=== PATIENT | female | born 1965 | race Caucasian/White ===

== ENCOUNTER 2020-01-04 08:40 | Outpatient (CLI) | payer OTHER, SELFPAY | END 2020-01-04 08:41 | disposition home or self-care (01) | LOC: ANHAUDIO 08:44 | PROVIDERS: Visit Provider Otolaryngology | DX: H90.71 Mixed conductive and sensorineural hearing loss, unilateral, right ear, with unrestricted hearing on the contralateral side (principal); H90.42 Sensorineural hearing loss, unilateral, left ear, with unrestricted hearing on the contralateral side | CPT/HCPCS: 92557; 92567 ==

== ENCOUNTER 2021-02-28 14:16 | Outpatient (CLI) | payer OTHER, SELFPAY | END 2021-02-28 14:17 | disposition home or self-care (01) | LOC: ANHAUDIO 14:18 | PROVIDERS: Visit Provider Otolaryngology | DX: H90.42 Sensorineural hearing loss, unilateral, left ear, with unrestricted hearing on the contralateral side (principal); H90.71 Mixed conductive and sensorineural hearing loss, unilateral, right ear, with unrestricted hearing on the contralateral side | CPT/HCPCS: 92557 ==

== ENCOUNTER 2025-03-21 16:09 | Outpatient (CLI) | payer OTHER, SELFPAY ==
--- NOTE | ~2025-03-21 | CT_ITS ---
EXAMINATION: CT sinus wo con DATE: 03/21/2025 16:36 INDICATION: Chronic sinusitis TECHNIQUE: Computed tomography (CT) of the paranasal sinuses was performed without intravenous contra st. The dose-length product was 329.94 mGy-cm. Automated exposure control and iterative reconstructio n technique were employed. COMPARISON: None FINDINGS: There is mild mucosal thickening of the left maxillary sinus. Small mucous retention cyst r ight sphenoid sinus. Mastoids are pneumatized. There are surgical changes in the right mastoid air ce lls. No air-fluid levels. Ostiomeatal units are patent. No mucoperiosteal reaction. No significant na germaine septal deviation. IMPRESSION: 1. Minimal sinus disease. Reviewed, dictated and finalized at location B. IMPRESSION: 1. Minimal sinus disease.
--- OUTSIDE RECORDS SUMMARY | 2025-03-21 16:39 | XMS_ITS | Clinical Summary ---
Author Organization [facility] Address [address], [facility] [address] [place] [address] Phone Care Team Providers Care Environmental Advisor Name Role Phone Tony Wall MD Unavailable [phone] Ryan Barnes DO Unavailable [phone] Carlitos Graves MD Primary Care Provider [phone] Allen King MD Unavailable [phone] Allergies No known active allergies Medications SYMBICORT 160-4.5 MCG/ACT Aerosol 0 Active fluticasone (FLONASE) 50 MCG/ACT Suspension 1 [place] daily. 0 Active albuterol 108 (90 Base) MCG/ACT Aerosol Solution 0 Active Cetirizine HCl 10 MG Capsule Take by mouth. A ctive Multiple Vitamin (Multi-Vitamin) Tablet Take by mouth. Activ e Turmeric 1053 MG Tablet Take by mouth. Activ e metFORMIN (GLUCOPHAGE) 500 MG Tablet 1 Active Apple Cider Vinegar 500 MG Tablet Take 1,000 mg by mouth daily. Active Cinnamon Bark Powder Take 1 Each by mouth. Active docusate sodium 100 MG Capsule Take 100 mg by mouth. Active Coenzyme Q10 (CoQ-10) 100 MG Capsule Take 100 mg by mouth. Active atorvastatin (LIPITOR) 10 MG Tablet Take 1 Tablet by mouth daily. 3 Active topiramate (TOPAMAX) 25 MG Tablet Take 25 mg by mouth. 3 Active lisinopril (PRINIVIL, ZESTRIL) 20 MG Tablet 3 Active nystatin (MYCOSTATIN) 494446 UNIT/GM Cream 3 Active Wheat Dextrin (BENEFIBER PO) Take 2 Tablets by mouth in the morning and at bedtime. Active simethicone (MYLICON) 125 MG Chewable Tablet Take 80 mg by mouth every 6 hours as needed. Active OneTouch Verio Strip 4 Active TRUEplus 5-Bevel Pen Gill[place] 32G X 4 MM Misc 4 Active aspirin EC 81 MG Tablet Delayed Response Take 81 mg by mouth daily. 4 Active carvedilol (COREG) 12.5 MG Tablet Take 12.5 mg by mouth 2 times daily. 4 Active Dulaglutide (Trulicity) 0.75 MG/0.5ML Solution Auto-injector 0.75 mg by Subcutaneous route. 4 Active erythromycin (ROMYCIN) 5 MG/GM Ointment Apply to right eye nightly 4 Active ofloxacin (FLOXIN) 0.3 % Solution Place 5 Drops in affected ear(s) 2 times daily. 4 Active Cholecalciferol (Vitamin D3) 31353 UNIT Capsule Take 50,000 Units by mouth. 5 04/22/20 25 Active Cinnamon 500 MG Capsule Take 500 mg by mouth daily. Active estradiol (ESTRACE) 0.1 MG/GM Cream 2 g by Vaginal route. 4 Active mupirocin (BACTROBAN) 2 % Ointment 5 Active Trulicity 3 MG/0.5ML Solution Auto-injector 5 Active Active Problems Problem Noted Date Diagnosed Date Pure hypercholesterolemia 09/25/2022 Type 2 diabetes mellitus wit hout complication, without long-term current use of insulin 10/09/2021 Disease due to severe acute respiratory syndrome coronavirus 2 (SARS-CoV-2) 08/17/2021 Overview (01/03/2022): Last Assessment & Plan: Drink plenty of fluids Take Delsym for cough Tylenol as needed Taking flonase and zyrtec daily YASMIN (obstructive sleep apnea) 04/05/2021 Overview (01/03/2022): Last Assessment & Plan: The patient will continue with CPAP therapy at 5-15 cm water pressure to treat obstructive sleep apnea. I did provide the patient an order for a medium-size mask and head gear to see if this might improve her CPAP experiences. The patient not DME company is [employer]. The patient needs to be refitted for mask. That has been ordered. The patient is benefitting from CPAP therapy. 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 Continue current meds, including OSIRIS-I or ARB, e.g. 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) (Primary Dx) 03/11/2025 Travel from Last 3 Months Immunizations Immunization Administration Dates Next Due Influenza Vaccine 07/13/2020 Influenza Vaccine, MDCK,quadrivalent, pres free 07/13/2020 Influenza Vaccine, Quadrivalent, PF 09/12/2021,0 11/08/2019 Pneumococcal Vaccine Adult - 23 Valent 0 TDAP Vaccine 11/08/2019 Family History Medical History Relation Name Comments Diabetes Father Cancer Maternal Grandmother Stroke Maternal Grandmother Cancer Maternal Uncle Cancer Mother Diabetes Paternal Grandmother Diabetes Sister Relation Name Status Comments Father Maternal Grandmother Maternal Uncle Mother Paternal Grandmother Sister Social History Tobacco Use Types Packs/Day Years Used Date Smoking Tobacco: Former Cigarettes Q uit: 11/19/2019 Smokeless Tobacco: Never Tobacco Cessation:Counseling Given: Not Answered Alcohol Use Standard Drinks/Week Comments Yes 0 (1 standard drink = 0.6 oz pur e alcohol) socially PHQ-2 Answer Date Recorded Total Score - Questions 1-9 0 04/13 Comments No Sex and Gender Information Value Date Recorded Sex Assigned at Not on file Legal Sex Female 10:03 AM TERMINAL OPERATIONS MANAGER Gender Identity Not on file Sexual Orientation Not on file Last Filed Vital Signs Vital Sign Reading Time Taken Comments Blood Pressure 158/80 03/11/2025 8:03 AM CDT Pulse 96 03/11/2025 8:03 AM CDT Temperature 36.5 C (97.7 F) 03/11/2025 8:03 AM CDT Respiratory Rate 16 03/11/2025 8:03 AM CDT Oxygen Saturation 96% 03/11/2025 8:03 AM CDT Inhaled Oxygen Concentration - - Weight 109.7 kg (241 lb 12.8 oz) 03/11/2025 8:03 AM CDT Height 175.3 cm (5' 9) 03/11/2025 8:03 AM CDT Body Mass Index 35.71 03/11/2025 8:03 AM CDT Plan of Treatment Upcoming Encounters Date Type Department Care Team (Late st Contact Info) Description 09/09/2025 8:15 AM TERMINAL OPERATIONS MANAGER Office [facility] [address] [place] [address] Ryan Barnes, [address] [place] [address] Health Maintenance Due Date Last Done Comments Diabetes: Eye Exam 1963 Diabetes: Foot Exam 1963 Zoster Immunization (1 of 2) 1982 Pap Smear 1984 Cervical Cancer Screening (CCS) 1993 HPV/Cotest 1993 Cologuard 2013 Immunochemical Fecal Occult Blood 2013 Pneumococcal Immunization (50+ years) (2 of 2 - PCV) 11/08/2020 11/08/2019 SARS-COV-2 Immunization (3 - Pfizer risk series) 02/01/2022 01/04/2022, 12/14/2021 Respiratory Syncytial Virus (RSV) Immunization (Adult) (1 - Risk 60-74 years 1-dose series) 2023 Mammogram 04/23/2025 04/23/2024, 04/12, 04/17/2023, Additional history exists Influenza Immunization (Season Ended) 2025 09/12/2021, 07/13/2020, 07/13/2020, Additional history exists Diabetes: Hemoglobin A1c 08/06/2025 025, 11/26/2024, 07/27/2024, Additional history exists Diabetes: Nephropathy Screening 02/04/2026 02/04/2025, 08/27/2024, 02/27/2024, Additional history exists Td Immunization Every 10 Years (Adults With 1 Tdap) 11/08/2029 11/08/2019 Colonoscopy 03/21/2031 03/21/2021 Colorectal Cancer Screening 03/21/2031 DTaP/Tdap/Td Immunization Discontinued 11/08/2019 Pneumococcal Immunization Combined Discontinued 11/08/2019 Hepatitis C Virus (HCV) Screening Completed 09/06/2022 Hepatitis B Immunization Aged Out No longer eligible based on patient's age to complete this topic Human Papillomavirus (HPV) Immunization Aged Out No longer eligible based on patient's age to complete this topic Meningococcal Immunization (ACWY) Aged Out No longer eligible based on patient's age to complete this topic Rotavirus Immunization Aged Out No lo nger eligible based on patient's age to complete this topic Procedures Procedure Name Priority Date/Time Associated Diagnosis Comments CMP (COMPREHENSIVE METABOLIC PANEL) Routine 08/27/2024 7:55 AM TERMINAL OPERATIONS MANAGER Malignant carcinoid tumor of the bronchus and lung (HCC) HEMOGLOBIN A1C [place] 1453 Routine 02/27/2024 8:33 AM CDT HEPATITIS C ANTIBODY Routine 09/06/2022 7:53 AM TERMINAL OPERATIONS MANAGER from Last 3 Months or Most Recently Relevant to Health Maintenance Results * (ABNORMAL) CMP (COMPREHENSIVE METABOLIC PANEL) (08/27/2024 7:55 AM TERMINAL OPERATIONS MANAGER) Glucose 195(H) 70 - 105 mg/dL [facility] Blood Urea Nitrogen 23 7 - 25 mg/dL [facility] Creatinine 0.8 0.6 - 1.2 mg/dL [facility] Sodium 143 136 - 145 mEq/L [facility] Potassium 3.5 3.5 - 5.1 mEq/L [facility] Chloride 102 98 - 107 mEq/L [facility] Bicarbonate 30 21 - 31 mEq/L [facility] Total Bilirubin 0.6 0.3 - 1.0 mg/dL [facility] Alk. Phosphatase 76 34 - 104 U/L [facility] Aspartate Aminotransferase 9(L) 13 - 39 U/L [facility] Alanine Aminotransferase 12 7 - 52 U/L [facility] Total Protein 6.5 6.4 - 8.9 g/dL [facility] Albumin 4.1 3.5 - 5.7 g/dL [facility] Calcium 8.9 8.6 - 10.3 mg/dL [facility] Anion Gap 14.5 7.0 - 15.0 mEq/L [facility] Globulin 2.4 2.0 - 3.5 g/dL [facility] EGFR 84 >60 ml/min/1. 73m2 [facility] Comment: This eGFR is calculated using 2020 CKD-EPI Creatinine equation without race modifier based on the NKF-ASN task force recommendations Blood 08/27/2024 7:55 AM TERMINAL OPERATIONS MANAGER Narrative [facility] - 08/27/2024 9:08 AM TERMINAL OPERATIONS MANAGER Release to patient->Immediate IS THE PATIENT REQUIRED TO BE FASTING FOR 8 HOURS?->No us Aubrie Jackman BEHAVIORAL PEDIATRICIAN, MASTER AUTOMOTIVE GLASS TECHNICIAN CHEMISTRY ORDERABLES Final Result [facility] [place] [address], * (ABNORMAL) HEMOGLOBIN A1C [place] 1453 (02/27/2024 8:33 AM CDT) HEMOGLOBIN A1C 6.2(H) 4.8 - 5.6 % [facility] Comment: PREDIABETES: 5.7 - 6.4 DIABETES: >6.4 GLYCEMIC CONTROL FOR ADULTS WITH DIABETES: <7.0 02/27/2024 8:33 AM CDT Narrative [facility] - 02/28/2024 5:08 AM CDT TESTING PERFORMED AT: [] [employer] [facility], [address] [place] [address], [address], PHONE: [phone], TANK PROCESSOR: SURYA ALCAZAR, PHD Spencer Lua MD LAB SEND OUTS Fin al Result Performing Organization Address City/[facility] Co de Phone Number [facility] [address] [place] [address], * HEPATITIS C ANTIBODY (09/06/2022 7:53 AM TERMINAL OPERATIONS MANAGER) Pathologist [facility] HEPATITIS C VIRUS AB SIGNAL CUTOFF <0.1 0.0 - 0.9 S/CO RATIO [facility] HEPATITIS C VIRUS AB COMMENT [facility] Comment: NEGATIVE NOT INFECTED WITH HCV, UNLESS RECENT INFECTION IS SUSPECTED OR OTHER EVIDENCE EXISTS TO INDICATE HCV INFECTION. 09/06/2022 7:53 AM TERMINAL OPERATIONS MANAGER Narrative [facility] - 09/08/2022 8:35 AM TERMINAL OPERATIONS MANAGER TESTING PERFORMED AT: [] [employer] [place], [address] [place] [address], [place], [address], PHONE: [phone], TANK PROCESSOR: SURYA ALCAZAR, PHD us Not On File Provider CHEMISTRY ORDERABLES Final Result Performing Organization Address City/[facility]/ZIP Co de Phone Number [facility] from Last 3 Months or Most Recently Relevant to Health Maintenance Insurance [place]ID [place] Care Teams Environmental Advisor Relationship Specialty Start Date End Date Carlitos Graves MD [address] [facility] [place] [place] [address] PCP - General Family Medicine 03/26/21 Tony Wall MD Internal Medicine 11/15/19 Ryan Barnes DO Consulting Physician Oncology 11/15/19 Allen King MD [address] [place] [id number] Consulting Physician Internal Medicine 04/23/21
--- OUTSIDE RECORDS SUMMARY | 2025-03-21 16:39 | XMS_ITS | Encounter Summary ---
Author Organization [facility] Address [address] [place] [address] Phone Care Team Providers Care Gas Processing Plant Operator Name Role Phone Tony Wall MD Unavailable Provider, None Primary Care Provider Unavailabl e Ryan Barnes DO Unavailable [phone] Carlitos Graves MD Primary Care Provider [phone] Allen King MD Unavailable [phone] Encounter Details Date Type Department Care Team (Late st Contact Info) Description 09/26/2020 Telephone [facility] [place] [address] [place] [address] Ryan Barnes, DO [address] [place] [address] Social History Tobacco Use Types Packs/Day Years Used Date Smoking Tobacco: Former Cigarettes Q uit: 11/19/2019 Smokeless Tobacco: Never Alcohol Use Standard Drinks/Week Comments Yes 0 (1 standard drink = 0.6 oz pur e alcohol) socially PHQ-2 Answer Date Recorded PHQ-2 Score 0 11/23/2019 Comments Unknown Sex and Gender Information Value Date Recorded Sex Assigned at Not on file Legal Sex Female 10:03 AM COVER STRIPPER Gender Identity Not on file Sexual Orientation Not on file COVID-19 Exposure Response Date Recorded In the last month, have you been in contact with someone who was confirmed or suspected to have Coronavirus / COVID-19? No / Unsure 09/29/2020 8:41 AM COVER STRIPPER documented as of this encounter Miscellaneous Notes * Telephone Encounter - Ryan Barnes DO - 09/26/2020 10:23 AM CST Should be unrelated to abscess. R STRIPPER * Telephone Encounter - Lay Lopez - 09/26/2020 7:56 AM CST PT WAS IN THE ER Friday EVENING AND SHE HAS AN ABCESS ON HER LEFT HAND PINKY FINGER. PT IS WANTING TO KNOW IF THERE IS AN ISSUE WITH HER PARTICULAR CANCER AND IF SHE NEEDS TO DO ANYTHING? PLEASE ADVISE. R STRIPPER documented in this encounter Plan of Treatment Upcoming Encounters Date Type Department Care Team (Late st Contact Info) Description 09/09/2025 8:15 AM COVER STRIPPER Office Visit [facility] [address] [address] Ryan Barnes DO [address] [place] [address] documented as of this encounter Visit Diagnoses Not on filedocumented in this encounter Additional Health Concerns Assessment Noted Time PHQ-9 Depression Total Score: 0 06/30/20 20 8:31 AM CDT documented as of this encounter Care Teams Gas Processing Plant Operator Relationship Specialty Start Date End Date Provider, None [facility] PCP - General 11/15/19 03/25/21 Carlitos Graves MD [address] [place] [address] PCP - General Family Medicine 03/26/21 Tony Wall MD Internal Medicine 11/15/19 Ryan Barnes DO [facility] Consulting Physician Oncology 11/15/19 Allen King MD [address] [place] [address] Consulting Physician Internal Medicine 04/23/21 documented as of this encounter
--- OUTSIDE RECORDS SUMMARY | 2025-03-21 16:39 | XMS_ITS ---
Author Organization [facility] Address [address], [facility] [address] [place] [address] Phone Care Team Providers Care Machine Stonecutter Name Role Phone Tony Wall MD Unavailable Ryan Barnes DO Unavailable [phone] Carlitos Graves MD Primary Care Provider [phone] Allen King MD Unavailable [phone] Active Problems Problem Noted Date Diagnosed Date [...] experiences. The patient not DME company is [employer]. 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 Past Treatment and Therapy Plans No past plan information found.
--- OUTSIDE RECORDS SUMMARY | 2025-03-21 16:39 | XMS_ITS | Encounter Summary ---
Author Organization [facility] Address [address] [place] [address] Phone Care Team Providers Care Transformation Analyst Name Role Phone Tony Wall MD Unavailable Ryan Barnes DO Unavailable [phone] Carlitos Graves MD Primary Care Provider [phone] Allen King MD Unavailable [phone] Encounter Details Date Type Department Care Team (Late st Contact Info) Description 03/30/2021 Telephone [facility] [place] [address] [place] [address] Ryan Barnes, DO [address] [place] [address] Social History Tobacco Use Types Packs/Day Years Used Date Smoking Tobacco: Former Cigarettes Q uit: 11/19/2019 Smokeless Tobacco: Never Alcohol Use Standard Drinks/Week Comments Yes 0 (1 standard drink = 0.6 oz pur e alcohol) socially PHQ-2 Answer Date Recorded Total Score - Questions 1-9 0 03/13 Comments No Sex and Gender Information Value Date Recorded Sex Assigned at Not on file Legal Sex Female 10:03 AM BAT CARRIER Gender Identity Not on file Sexual Orientation Not on file COVID-19 Exposure Response Date Recorded In the last month, have you been in contact with someone who was confirmed or suspected to have Coronavirus / COVID-19? No / Unsure 03/23/2021 9:53 AM CDT documented as of this encounter Miscellaneous Notes * Telephone Encounter - Ryan Barnes DO - 03/30/2021 1:51 PM CDT Have patient call and get in to new manpower development specialist manager or safb doctor. * Telephone Encounter - Lay Lopez - 03/30/2021 10:55 AM CDT SPOKE TO DR TOBIN OFFICE AND THEY STATED HE IS NOT TAKING NEW PT. THEY DO HAVE AN WATERSHED ENGINEER AND A NEW MD FROM [facility] BUT THEY WOULD NOT CHANGE IT BY US ASKING TO SEE THAT PROVIDER THE PT HERSELF WOULDHAVE TO CALL THEM AND SAY SHE IS FINE TO SEE ONE OF THOSE PROVIDERS. WHAT WOULD YOU LIKE ME TO DO? documented in this encounter Plan of Treatment Upcoming Encounters Date Type Department Care Team (Late st Contact Info) Description 09/09/2025 8:15 AM BAT CARRIER Office Visit [facility] [address] [id number] Ryan Barnes DO [address] [place] [phone] documented as of this encounter Visit Diagnoses Not on filedocumented in this encounter Additional Health Concerns Assessment Noted Time PHQ-9 Depression Total Score: 0 03/23/20 21 10:12 AM CDT documented as of this encounter Care Teams Transformation Analyst Relationship Specialty Start Date End Date Carlitos Graves MD [address] [place] [address] PCP - General Family Medicine 03/26/21 Tony Wall MD Internal Medicine 11/15/19 Ryan Barnes DO Consulting Physician Oncology 11/15/19 Allen King MD [address] [place] [address] Consulting Physician Internal Medicine 04/23/21 documented as of this encounter
--- OUTSIDE RECORDS SUMMARY | 2025-03-21 16:39 | XMS_ITS | Encounter Summary ---
Author Organization [facility] Address [address] [place] [address] Phone Care Team Providers Care Carbonation Equipment Operator Name Role Phone Ryan Barnes DO Unavailable Tony Wall MD Unavailable Bar Kimble MD Unavailable Gerard Mercado MD Unavailable [phone] Angelic Wilcox MD Primary Care Provider Encounter Details Date Type Department Care Team (Late st Contact Info) Description 01/21/[address] [facility] Otolaryngology [address], [address] [place] [address] Lynette Cabrera CMA Social History Tobacco Use Types Packs/Day Years Used Date Smoking Tobacco: Former Cigarettes 2 43.1 1 977 - 11/2019 Passive Smoke Exposure: Past Smokeless Tobacco: Never Alcohol Use Standard Drinks/Week Comments Yes 0 (1 standard drink = 0.6 oz pur e alcohol) rarely AUDIT-C Answer Date Recorded Q1: How often do you have a drink containing alcohol? Never 01/24/2025 Q2: How many drinks containi ng alcohol do you have on a typical day when you are drinking? Patient does not drink Q3: How often do you have si x or more drinks on one occasion? Never 01/24/2025 PHQ-2 Answer Date Recorded PHQ-2 Total Score (If total score is 3 or more points, staff should administer the PHQ-9) 0 09/25/2023 Personal Safety Answer Date Recorded Have you ever been in or are you currently in a harmful physical or emotional relationship or is someone making you feel afraid or unsafe? Denies 01/24/2025 Comments No Sex and Gender Information Value Date Recorded Sex Assigned at Not on file Legal Sex Female 12:51 PM FINISHING AND SHIPPING SUPERVISOR Gender Identity Not on file Sexual Orientation Not on file documented as of this encounter Functional Status documented as of this encounter Plan of Treatment Not on file documented as of this encounter Visit Diagnoses Not on filedocumented in this encounter Care Teams Carbonation Equipment Operator Relationship Specialty Start Date End Date Angelic Wilcox MD [address] [facility] [address] [place] [address] PCP - General Family Medicine 08/16/24 Ryan Barnes DO Referring Physician Medical Oncology 03/19/20 Tony Wall MD [address] [facility] [address] [place] [address] Retail Training Manager Internal Medicine 03/19/20 Bar Kimble MD [address] [address] Consulting Physician Pulmonary Disease 01/28/22 Gerard Mercado MD [address] [place] [address] Consulting Physician Urology 08/02/22 documented as of this encounter
--- OUTSIDE RECORDS SUMMARY | 2025-03-21 16:40 | XMS_ITS | Clinical Summary ---
Author Organization [facility] Address [address] [place] [address] Care Team Providers Care Health Advocate Name Role Phone Maine Irwin Primary Care Provider [phone] Source Comments [facility],non-owned Affiliates and Associated Physician Practices is amultiple site organization consisting of ambulatory clinics and hospital sitesin [place], [place], [place] and [place]. This disclosure is being madepursuant to the Care Everywhere program and may not contain all information available regarding this patient. Last updated 18.[facility] Allergies No known active allergies Medications * Be aware that medications may not be up to date on this document. Alwaysverify current medications with the patient. Budesonide-For moterol Fumarate (SYMBICORT IN) Inhale 2 puffs by mouth 2 times daily Active Turmeric 500 MG Take by mouth 2 times daily Active carvedilol (COREG) 6.25 MG tablet Take 1 (one) tablet by mouth 2 times daily with morning and evening meal Active metFORMIN (GLUCOPHAGE) 500 MG tablet Take 1 (one) tablet by mouth 2 times daily with morning and evening meal Active atorvastatin (LIPITOR) 10 MG tablet Take 1 (one) tablet by mouth at bedtime Active cetirizine (ZYRTEC) 10 MG tablet Take 1 (one) tablet by mouth once daily Active Albuterol Sulfate, sensor, 108 (90 Base) MCG/ACT AEPB Active Multiple Vitamins-Shrimp Packer als (MULTIVITAMIN ADULTS 50+ PO) Take by mouth once daily Active fluticasone propionate (Flonase) 50 MCG/ACT nasal spray [place] 2 (two) sprays into each nostril once daily Active liraglutide (VICTOZA) 18 MG/3ML pen Inject 1.2 mg subcutaneously once daily Active Apple Cider Vinegar 500 MG Take 1,000 mg by mouth at bedtime Active Cinnamon Bark POWD Take 1 Each by mouth Active ciprofloxacin- dexAMETHasone (Ciprodex) 0.3-0.1 % otic suspension 2 Active Docusate Sodium (DSS) 100 MG Take 100 mg by mouth Active TechLite [place] 29G X 12MM needle USE TO INJECT 1 4 TIMES DAILY DIRECTED 1 Active TRUEplus [place] 32G X 4 MM MISC USE TO TAKE VICTOZA ONCE A DAY 2 Active lisinopril (Prinivil; Zestril) 20 MG tablet 2 Active Symbicort 160-4.5 MCG/ACT inhaler 2 Active liraglutide (Victoza) 18 MG/3ML pen Inject 1.8 mg subcutaneously 1 Active Active Problems Problem Noted Date Diagnosed Date Pure hypercholesterolemia 09/25/2022 Hydronephrosis 07/15/2022 Overview (11/14/2022): 07/18/22: NC: Nephrolithiasis. CT (outside, ~07/12/22) - RIGHT lower pole & RIGHT UVJ stone (obstructing w/ hydronephrosis). Creatinine wnl. Duplicated system. 08/07/22: RP: S/p R URS/LL, stent (08/02/22). Needs stent pull. Needs 4wk US (can be done locally). Right ureteral stone 07/12/2022 Bronchogenic lung cancer, right 03/21/2022 Overview (11/14/2022): Last Assessment & Plan: XI ROBOTIC LOBECTOMY (Right) - pain well controlled - D/C chest tube today - no air leak - wean D/C O2 - D/C franki/grier - PT to see - MTF Last Assessment & Plan: XI ROBOTIC LOBECTOMY (Right) - pain well controlled - D/C chest tube today - no air leak - wean D/C O2 - D/C franki/grier - PT to see - MTF Disease due to severe acute respiratory syndrome coronavirus 2 (SARS-CoV-2) 08/17/2021 Overview (11/14/2022): Last Assessment & Plan: Drink plenty of fluids Take Delsym for cough Tylenol as needed Taking flonase and zyrtec daily Last Assessment & Plan: Drink plenty of fluids Take Delsym for cough Tylenol as needed Taking flonase and zyrtec daily Last Assessment & Plan: Drink plenty of fluids Take Delsym for cough Tylenol as needed Taking flonase and zyrtec daily Last Assessment & Plan: Drink plenty of fluids Take Delsym for cough Tylenol as needed Taking flonase and zyrtec daily Last Assessment & Plan: Drink plenty of fluids Take Delsym for cough Tylenol as needed Taking flonase and zyrtec daily Last Assessment & Plan: Drink plenty of fluids Take Delsym for cough Tylenol as needed Taking flonase and zyrtec daily YASMIN (obstructive sleep apnea) 04/05/2021 Overview (11/14/2022): Last Assessment & Plan: Patient will continue with auto titrating CPAP set at auto titrating range of 5- 13 cm water pressure. Patient denied need for supplies. The Political Student adapt. Last Assessment & Plan: The patient will continue with CPAP therapy at 5-15 cm water pressure to treat obstructive sleep apnea. I did provide the patient an order for a medium-size mask and head gear to see if this might improve her CPAP experiences. The patient not [employer] Student is aero care. The patient needs to be refitted for mask. That has been ordered. The patient is benefitting from CPAP therapy. Last Assessment & Plan: Patient will continue with auto titrating CPAP set at auto titrating range of 5- 13 cm water pressure. Patient denied need for supplies. The Political Student adapt. Last Assessment & Plan: The patient will continue with CPAP therapy at 5-15 cm water pressure to treat obstructive sleep apnea. I did provide the patient an order for a medium-size mask and head gear to see if this might improve her CPAP experiences. The patient not [employer] Student is aero care. The patient needs to be refitted for mask. That has been ordered. The patient is benefitting from CPAP therapy. Last Assessment & Plan: Patient will continue with auto titrating CPAP set at auto titrating range of 5- 13 cm water pressure. Patient denied need for supplies. The Political Student adapt. Last Assessment & Plan: The patient will continue with CPAP therapy at 5-15 cm water pressure to treat obstructive sleep apnea. I did provide the patient an order for a medium-size mask and head gear to see if this might improve her CPAP experiences. The patient not The [employer] Student is aero care. The patient needs to be refitted for mask. That has been ordered. The patient is benefitting from CPAP therapy. 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 PSVT (paroxysmal supraventricular tachycardia) 0 02/21/2021 Overview (11/14/2022): Last Assessment & Plan: - restart home BB Mixed hyperlipidemia 02/21/2021 Malignant neoplasm of lower respiratory tract Overview (11/14/2022): s/p RMLobectomy 03/21/2022 s/p RMLobectomy 03/21/2022 Diabetes mellitus type 2 without retinopathy 02/2021 Overview (11/14/2022): Last Assessment & Plan: - SSI - on oral medications at home Last Assessment & Plan: - SSI - on oral medications at home Hyperglycemia 10/17/2020 Annual physical exam 05/16/2020 Overview (11/14/2022): Last Assessment & Plan: Follow-up 1 year for annual physical. Continue eating healthy. Limit processed foods like white starches, fast food, sweets and soda. Increase your vegetable intake and limit red meat. Continue exercising and wearing your seatbelt at all times. No texting and driving. Continue to manage your stress in a healthy manner. Diastolic dysfunction 05/16/2020 Overview (11/14/2022): Last Assessment & Plan: Diastolic function: stage I - impaired relaxation LVEF: 60-70%. - chronic and compensated - Cont BB, hold OSIRIS for now - not on diuretic Class 2 obesity with body ma ss index (BMI) of 37.0 to 37.9 in adult 04/06/2020 Edema 04/06/2020 Dyspnea 04/06/2020 Palpitations 04/06/2020 Essential hypertension 03/07/2020 Overview (11/14/2022): Last Assessment & Plan: Goal blood pressure is less than 140/85 Low salt diet was discussed andd recommended The importance of daily aerobic exercise was also emphasized. Continue current meds, including OSIRIS-I or ARB, e.g. Lisinopril Check microalbumin Last Assessment & Plan: Goal blood pressure is less than 140/85 Low salt diet was discussed andd recommended The importance of daily aerobic exercise was also emphasized. Continue current meds, including OSIRIS-I or ARB, e.g. Lisinopril Check microalbumin Smoking 03/07/2020 Overview (01/12/2025): 43 pack years, on going 43 pack years, on going IMO 01/12/2025 Tinnitus of both ears 03/07/2020 Mediastinal lymphadenopathy 03/07/2020 Abnormal finding on lung imaging 11/11/2019 Centrilobular emphysema 11/11/2019 Cigarette nicotine dependenc e with nicotine-induced disorder 11/11/2019 Multiple pulmonary nodules 11/11/2019 Mediastinal lymphadenopathy Lung nodule Resolved Problems Problem Noted Date Diagnosed Date Resolved Date UTI (urinary tract infection) 07/15/2022 11/28/2022 Social History Tobacco Use Types Packs/Day Years Used Date Smoking Tobacco: Former Cigarettes Smokeless Tobacco: Never Tobacco Cessation:Counseling Given: Not Answered Alcohol Use Standard Drinks/Week Comments Not Currently 0 (1 standard drink = 0.6 oz pur e alcohol) Comments No Sex and Gender Information Value Date Recorded Sex Assigned at Not on file Legal Sex Female 10:27 AM [employer]CERT PROMOTER Gender Identity Not on file Sexual Orientation Not on file Last Filed Vital Signs Vital Sign Reading Time Taken Comments Blood Pressure 140/76 11/14/2022 1:14 PM CONCERT PROMOTER Pulse 74 06/08/2021 2:50 PM CDT Temperature 36.6 C (97.9 F) 12/03/2019 4:30 PM CONCERT PROMOTER Respiratory Rate 18 12/03/2019 5:00 PM CONCERT PROMOTER Oxygen Saturation 93% 12/03/2019 5:00 PM CONCERT PROMOTER Inhaled Oxygen Concentration - - Weight 99.1 kg (218 lb 6.4 oz) 11/14/2022 1:14 P M [employer]CERT PROMOTER Height 175.3 cm (5' 9) 11/14/2022 1:14 PM CONCERT PROMOTER Body Mass Index 32.25 11/14/2022 1:14 PM CONCERT PROMOTER Plan of Treatment Health Maintenance Due Date Last Done Comments COLOGUARD (AGES 45-75) - COLON CA SCREENING 1965 CT COLONOGRAPHY - COLON CA SCREENING 1965 FIT - COLON CA SCREENING 1963 FLEX SIG - COLON CA SCREENING 1963 HIV SCREENING 1978 HEPATITIS C SCREENING 04/21/1981 DTAP/TDAP/TD VACCINES (1 - Tdap) 1982 PNEUMOCOCCAL VACCINE 50+ (1 of 2 - PCV) 1982 ZOSTER VACCINE (1 of 2) 2013 DIABETES RETINOPATHY SCREENING 11/14/2022 DIABETES-FOOT EXAM WITH MONOFILAMENT 11/14/2022 Respiratory Syncytial Virus (RSV) Vaccine Pt: or over 60 yrs (1 - Risk 60-74 years 1-dose series) 2023 COVID-19 VACCINE ( season) 2024 01/04/2022, 12/14/2021 DIABETES-HGB A1C 08/29/2024 02/27/2024, , 05/08/2021, Additional history exists DEPRESSION SCREENING 10/13/2024 DIABETES - URINE PROTEIN SCREENING 10/13/2024 DIABETES-SERUM CREATININE 02/26/20252023, 09/06/2022, 08/20/2022, Additional history exists INFLUENZA VACCINE (Season Ended) 2025 09/12/2021, 07/13/2020, 11/08/2019 MAMMOGRAM 04/23/2026 04/23/2024, 04/12, 04/23/2024, Additional history exists PAP SMEAR 05/29/2026 05/29/2023 COLON MONITORING 03/21/2031 03/21/2021 COLONOSCOPY - COLON CA SCREENING 03/21/2031 03/21/2021 Colorectal Cancer Screening 03/21/2031 HEPATITIS B VACCINE Aged Out No longe r eligible based on patient's age to complete this topic HIB VACCINE Aged Out No longer eligi ble based on patient's age to complete this topic HPV VACCINE Aged Out No longer eligi ble based on patient's age to complete this topic MENINGOCOCCAL (Group B) VACCINE SHARED DECISION-MAKING Aged Out No longer eligible based on patient's age to complete this topic MENINGOCOCCAL GROUPS A/C/Y/W VACCINE Aged Out No longer eligible based on patient's age to complete this topic Insurance [facility] Advance Directives Documents on File Type Date Recorded Patient Increment Manager Expl anation Adv Directive/Living Will/POA 12/06/2019 3:17 PM Care Teams Health Advocate Relationship Specialty Start Date End Date Maine Irwin [place] [address] [facility] [address] [place] [address] PCP - General 05/04/21
--- OUTSIDE RECORDS SUMMARY | 2025-03-21 16:40 | XMS_ITS ---
Author Organization [facility] Address [address] [address] Care Team Providers Care Dental Nurse Name Role Phone Maine Irwin Primary Care Provider Active Problems Problem Noted Date Diagnosed Date [...] leak - wean D/C O2 - D/C franki/marvel - PT to see - MTF Disease [...] water pressure. Patient denied need for supplies. [employer]v adapt. Last Assessment & Plan: The patient will continue with CPAP therapy at 5-15 cm water pressure to treat obstructive sleep apnea. I did provide the patient an order for a medium-size mask and head gear to see if this might improve her CPAP experiences. The patient not DME [employer] is aero care. The patient needs to be refitted for mask. That has been ordered. The patient is benefitting from CPAP therapy. Last Assessment & Plan: Patient will continue with auto titrating CPAP set at auto titrating range of 5- 13 cm water pressure. Patient denied need for supplies. Evolv adapt. Last Assessment & Plan: The patient will continue with CPAP therapy at 5-15 cm water pressure to treat obstructive sleep apnea. I did provide the patient an order for a medium-size mask and head gear to see if this might improve her CPAP experiences. The patient not DME [employer] is aero care. The patient needs to be refitted for mask. That has been ordered. The patient is benefitting from CPAP therapy. Last Assessment & Plan: Patient will continue with auto titrating CPAP set at auto titrating range of 5- 13 cm water pressure. Patient denied need for supplies. Evolv adapt. Last Assessment & Plan: The patient will continue with CPAP therapy at 5-15 cm water pressure to treat obstructive sleep apnea. I did provide the patient an order for a medium-size mask and head gear to see if this might improve her CPAP experiences. The patient not DME [employer] is aero care. The patient needs to [...] pulmonary nodules 11/11/2019 Mediastinal lymphadenopathy Lung nodule Current Treatment and Therapy Plans No current plan information found. Past Treatment and Therapy Plans No past plan information found. Lifetime Dose Tracking * Chemical Lifetime Dose Automatic Entry Manual Entr y Dose Length Product 2,332.8 mGy-cm 2,332.8 mGy-cm 0 mG y-cm Resolved Problems Problem Noted Date Diagnosed Date Resolved Date UTI (urinary tract infection) 07/15/2022 11/28/2022
--- OUTSIDE RECORDS SUMMARY | 2025-03-21 16:40 | XMS_ITS | Referral Summary ---
Author Organization [facility] Address [address] [place] [address] Care Team Providers Care Formula Maker Name Role Phone Ryan Barnes DO Unavailable Tony Wall MD Unavailable Bar Kimble MD Unavailable Gerard Mercado MD Unavailable [phone] Angelic Wilcox MD Primary Care Provider Encounters Date Type Department Care Team Description 03/11/2025 Plan of Care Documentation [facility] OP Physical Therapy [address] [place] [address] 03/11/2025 11:30 AM CDT Therapy [facility] OP Physical Therapy [address] [place] [address] Nica Arce, PT Urgency incontinence (Primary Dx) 03/04/2025 1:30 PM CDT Therapy [facility] OP Physical Therapy [address] [place] [address] Nica Arce, PT Urgency incontinence (Primary Dx) 03/01/2025 Telephone [facility] ([facility] - [facility] ENT [address] [facility] 11[address] [place] [address] [place] [address] Opal Barlow Return call 03/01/2025 Telephone [facility] Otolaryngology [address] [place] [address] Hawa David, 02/25/2025 11:30 AM CDT Therapy [facility] OP Physical Therapy [address] [place] [address] Nica Arce, PT Urgency incontinence (Primary Dx) 02/18/2025 10:30 AM CDT Therapy [facility] OP Physical Therapy [address] [place] [address] Nica Arce, PT Urgency incontinence (Primary Dx) 02/17/2025 2:20 PM CDT Office Visit [facility] Urology [address] [facility] [address] [place] [phone] Ira Viera MD Urgency incontinence; Urgency of urination; Nocturia; Duplicated right renal collecting system; Hydronephrosis, unspecified hydronephrosis type; Overactive bladder; Kidney stone 02/11/2025 11:30 AM CDT Therapy [facility] OP Physical Therapy [address] [place] [address] Nica Arce, PT Urgency incontinence (Primary Dx) 02/04/2025 11:30 AM CDT Therapy [facility] OP Physical Therapy [address] [place] [address] Nica Arce, PT Urgency incontinence (Primary Dx) 01/28/2025 10:30 AM CDT Therapy [facility] OP Physical Therapy [address] [place] [address] Nica Arce, PT Urgency incontinence (Primary Dx) 01/24/2025 7:30 AM CDT Anesthesia Event [facility] Operating Room [address] [facility] [place] [address] Nima Marcos MD Deibel, Lori, NP 01/24/2025 5:37 AM CDT - 01/24/2025 8:13 AM CDT Hospital Encounter [facility] Operating Room [address] [facility] [place] [phone] Que Carreon MD Discharge Disposition: Discharge to home or self care 01/21/2025 Telephone [facility] Otolaryngology [address] [facility], [address] [place] [phone] Lynette Cabrera, GIAN 01/21/2025 2:30 PM CDT Therapy [facility] OP Physical Therapy [address] [place] [address] Nica Arce, PT Urgency incontinence (Primary Dx) 01/18/2025 Orders Only [facility] Otolaryngology [address] [facility], [address] [place] [address] Lynette Cabrera, GIAN 01/14/2025 Telephone [facility] Otolaryngology [address] [facility], [address] [place] [address] Rula Tao RN 01/14/2025 Telephone [facility] Otolaryngology [address] [facility], [address] [place] [phone] Lynette Cabrera, GIAN 01/14/2025 11:15 AM CDT Therapy [facility] OP Physical Therapy [address] [place] [address] Nica Arce, PT Urgency incontinence (Primary Dx) 01/07/2025 10:15 AM CDT Therapy [facility] OP Physical Therapy [address] [place] [address] Nica Arce, PT Urgency incontinence (Primary Dx) 01/04/2025 9:00 AM CDT Procedure visit [facility] Otolaryngology [address] [facility], [address] [place] [address] Mixed conductive and sensorineural hearing loss of right ear with restricted hearing of left ear (Primary Dx); Tinnitus of right ear; Pressure sensation in both ears 01/04/2025 9:20 AM CDT Office Visit [facility] Otolaryngology [address] [facility], [address] [place] [address] Que Carreon MD Conductive hearing loss of right ear with unrestricted hearing of left ear (Primary Dx); Right chronic otitis media 12/28/2024 Telephone [facility] Surgery [address] [place] [address] Betty Chavez 12/22/2024 Plan of Care Documentation [facility] OP Physical Therapy [address] [place] [address] 12/22/2024 9:30 AM CDT Therapy [facility] OP Physical Therapy [address] [place] [address] Nica Arce, PT Urgency incontinence 12/21/2024 Orders Only [facility] Urology [address] [facility] [address] [place] [address] Ira Viera MD Urgency incontinence (Primary Dx) from Last 3 Months Allergies No known active allergies Medications Symbicort 160-4.5 mcg/actuation inhalerIndicatio ns:Bronchospasm Prevention with COPD Inhale 2 puffs 2 (two) times a day 0 Active albuterol HFA (PROVENTIL HFA,VENTOLIN HFA,PROAIR HFA) 90 mcg/actuation inhalerIndicatio ns:Chronic Obstructive Pulmonary Disease Inhale 2 puffs as needed for wheezing or shortness of breath 0 Active fluticasone propionate (FLONASE) 50 mcg/actuation nasal sprayIndications :Allergic Rhinitis Administer 1 spray into each nostril every morning 0 Active cetirizine 10 mg capsuleIndicatio ns:Seasonal Allergic Rhinitis Take 10 mg by mouth nightly Active TURMERIC ORALIndications: supplement Take 1 tablet by mouth every morning Active blood-glucose meter miscIndications: Diabetes mellitus type 2 in obese Use daily or as directed for monitoring of diabetes. 1 each 1 Active apple cider vinegar 500 mg tabletIndication s:supplement Take 1,000 mg by mouth nightly Active carvediloL (COREG) 12.5 mg tablet Take 1 tablet (12.5 mg total) by mouth 2 (two) times a day with meals 180 tablet 3 3 Active Additional Information Patient taking differently:12.5 mg oral 2 times daily with meals (bkfst, dinner),Indications: hypertension, Informant: Self, Reported on 01/24/2025 coenzyme Q10 75 mg capsuleIndicatio ns:supplement Take 1 capsule (75 mg total) by mouth nightly Active nystatin creamIndications :feet, fungal infection Apply 1 Application topically 2 (two) times a day 3 Active atorvastatin (LIPITOR) 10 mg tablet TAKE 1 TABLET BY MOUTH DAILY 90 tablet 3 3 Active Additional Information Patient taking differently: 10 mg oral Every evening, Indications: hyperlipidemia, Informant: Self, Reported on 01/24/2025 TRUEplus Pen Needle 32 gauge x 5/32 needle USE TO TAKE VICTOZA ONCE A DAY 200 each 1 4 Active lisinopriL (PRINIVIL,ZESTRI L) 20 mg tabletIndication s:Essential hypertension TAKE 1 TABLET BY MOUTH DAILY 90 tablet 4 Active Additional Information Patient taking differently:20 mg oralEvery morning, Indications: hypertension, Informant: Self, Reported on 01/05/2025 estradioL (ESTRACE) 0.01 % (0.1 mg/gram) vaginal cream Insert 2 g into the vagina 3 (three) times a week Apply nightly to vagina for 1 week, then Friday/Friday / Friday 42.5 g 5 4 Active Additional Information Patient taking differently:2 g vaginalEvery morning, (No instructions reported), Informant: Self, Reported on 01/24/2025 OneTouch Delica Plus Lancet 33 gauge misc USE TWICE DAILY 100 each 3 4 Active OneTouch Verio test strips strip USE TO TEST TWICE DAILY 100 each 2 4 Active cinnamon bark 500 mg capsuleIndicatio ns:supplement Take 1 capsule (500 mg total) by mouth every morning Active aspirin 81 mg enteric coated tabletIndication s:prevention of thrombosis Take 1 tablet (81 mg total) by mouth every morning 4 Active dulaglutide (Trulicity) 3 mg/0.5 mL pen injectorIndicati ons:type 2 diabetes mellitus Inject 0.5 mL (3 mg total) under the skin every 7 days 6 mL 3 5 026 Active Additional Information Patient taking differently:3 mg subcutaneous Every 7 days,, Indications: type 2 diabetes mellitus, Informant: Self, Reported on 01/05/2025 metFORMIN XR (GLUCOPHAGE XR) 500 mg 24 hr tabletIndication s:Type 2 diabetes mellitus with hyperglycemia, without long-term current use of insulin (HCC) TAKE 1 TABLET BY MOUTH DAILY 90 tablet 3 5 Active Additional Information Patient taking differently:500 mg oralDaily with breakfast, Indications: type 2 diabetes mellitus, Informant: Self, Reported on 01/24/2025 guaiFENesin ER (MUCINEX) 600 mg 12 hr tabletIndication s:Cough Take 2 tablets (1,200 mg total) by mouth 2 (two) times a day Active predniSONE (DELTASONE) 20 mg tablet Take 1 tablet (20 mg) by mouth daily Takes 2 tabs together for 40 mg total Active Active Problems Patient Care Coordination No te Formatting of this note is d ifferent from the original. This is a 54 year old female presenting to us with a carcinoid tumor. She has a medical history significant for COPD and hypertension. She presented to an urgent care in September for a cough, congestion, cold and sore throat. She underwent a chest x-ray and was told there a concerning lung nodule. She subsequently underwent a chest CT in October that demonstrated multiple bilateral subcentimeter pulmonary nodulesas well as mediastinal lymphadenopathy. She was referred to pulmonology and underwent a bronchoscopy and transbronchial biopsy showing granulomatous disease. However, she has a dominant nodule in the right middle lobe that is just over a centimeter in size and a transbronchial biopsy showed this to be a carcinoid tumor. She underwent PFTs that showed a FEV1 of 56% predicted and had a normal DLCO. She underwent a PET scan on 01/06/2020 that showed a 1.7 x 1.4 cm right middle lobe pulmonary nodule with a slightly increased metabolic SUV of 3.39 consistent with patient s known carcinoid tumor. Slightly metabolically active 7 mm nodule in the right middle lobe with SUV max of 1.43, which may represent additional site of disease versus infectious/inflammatory process. There are additional multiple right lung pulmonary nodules are too small to detect metabolic activity. There are metabolically active mediastinal and symmetric bilateral hilar lymph nodes with SUV max of 4.7, which is higher than the right middle lobe nodule. These most likely represent infectious/inflammatory process. There is a region of increased metabolic activity with calcification in the left suprasellar cistern which may represent meningioma. She is here for further surgical evaluation and discussion. Bhavna Lu NP 11/06/20241957 This is a 59 year old female presenting to the clinic today for an annual follow up for continued surveillance. She underwent a right middle lobectomy and lymph node dissection on 03/21/2022 for removal of a carcinoid tumor. She was last seen on 10/21/2023 at which time there was no evidence of recurrence or metastasis and the plan was to see her back this year. She underwent a CT of the chest without contrast on 11/04/2024 which reveals: MEDIASTINUM/PRUDENCE: No abnormal lymph nodes by size criteria. No thoracic aortic aneurysm. LUNGS/PLEURA: Moderate centrilobular pulmonary emphysema. Stable pulmonary nodules, including a 3 mm right upper lobe nodule (axial image 41), 4 mm part solid right upper lobe nodule (axial image 47), 3 mm right upper lobe nodule axial image 55) and 5 mm right lower lobe nodule (axial image 78). These are stable dating back to 07/18/2022. No new pulmonary nodules. Previous right middle lobectomy. No pleural effusion or pneumothorax. All imaging available on file for review. She is here for further surgical discussion and evaluation. Problem Noted Date Diagnosed Date Conductive hearing loss of r ight ear with unrestricted hearing of left ear 03/18/2024 Right chronic otitis media 03/18/2024 Tympanic membrane perforation, right 03/18/2024 Morbid (severe) obesity due to excess calories 0 03/20/2023 Pure hypercholesterolemia 09/25/2022 Hydronephrosis 07/15/2022 Overview (09/19/2022): 07/18/22: NC: Nephrolithiasis. CT (outside, ~07/12/22) - RIGHT lower pole & RIGHT UVJ stone (obstructing w/ hydronephrosis). Creatinine wnl. Duplicated system. 08/07/22: RP: S/p R URS/LL, stent (08/02/22). Needs stent pull. Needs 4wk US (can be done locally). Right ureteral stone 07/12/2022 Bronchogenic lung cancer, right 03/21/2022 03/20/2023 Overview (03/20/2023): Last Assessment & Plan: XI ROBOTIC LOBECTOMY [...] franki/grier - PT to see - MTF COVID 08/17/2021 Assessment & Plan (08/25/2021 1:54 PM COMMUNITY WORKER): Drink plenty of fluids Take Delsym for cough Tylenol as needed Taking flonase and zyrtec daily Type 2 diabetes mellitus wit h hyperglycemia, without long-term current use of insulin 06/05/2021 Overview (06/05/2021): on Metformin. Pt has questions regarding her cancer treatments in relation to her DM. Will refer to endocrinology. Assessment & Plan (11/26/2024 10:00 AM COMMUNITY WORKER): Chronic problem. A1c improved from 6.6% 07/27/24 to now 6.1%. Will increase trulicity from 1.5mg to 3mg weekly to help with weight loss. Current medications: Metformin XR 500mg daily Trulicity 3 mg weekly UTD on DM eye exam (04/13/24 no DMR/DME [facility]) UTD on labs. Discussed with Comfort Vasques: Strive for regular exercise (30min most days) and diet (get at least 4-5 servings of fruit and veggies daily, avoid processed foods, increase lean protein intake and decrease carb portions as well as fruit juices, regular soda & desserts). Watch carbs and simple sugars. Check the blood sugar: 2-3x/wk Check the feet daily for skin breakdown and infection. Assessment & Plan (07/27/2024 3:32 PM CDT): Chronic problem. A1c at goal but increased from 6.2% 02/28/24 to now 6.6%. would like to eventually come off of metformin. Will change from Victoza to trulicity. Reviewed scheduling & SE. Current medications: Metformin XR 500mg daily Trulicity 0.75mg weekly x 4 weeks then increase to 1.5mg weekly UTD on DM eye exam (04/13/24 no DMR/DME [facility]) Will update MA/Cr today. Does not mychart. Verified phone #/address to contact re: results. Discussed with Comfort Vasques: Strive for regular exercise (30min most days) and diet (get at least 4-5 servings of fruit and veggies daily, avoid processed foods, increase lean protein intake and decrease carb portions as well as fruit juices, regular soda & desserts). Watch carbs and simple sugars. Check the blood sugar: Check the feet daily for skin breakdown and infection. Assessment & Plan (01/27/2024 2:51 PM CDT): Chronic, well controlled Will switch form victoza to Mounjaro, to help with weight loss Continue metformin Assessment & Plan (07/11/2023 2:40 PM CDT): Hba1c was Lab Results Component Value Date HGBA1C 5.9 07/11/2023 today, indicating adequate DM control Goal Hba1c and blood glucose explained Diet and exercise were advised Prevention and treatment of hyypoglcyemia were discussed with the patient Blood glucose monitoring : finger sticks every other day, alternating different times of the day Adjustment to medications: Continue with Metformin and Victoza Assessment & Plan (12/24/2022 2:38 PM CDT): Hba1c was Lab Results Component Value Date HGBA1C 5.5 12/24/2022 today, indicating adequate DM control Goal Hba1c and blood glucose explained Diet and exercise were advised Prevention and treatment of hyypoglcyemia were discussed with the patient Blood glucose monitoring : 1 x day Adjustment to medications: Continue Metformin Continue Victoza. Assessment & Plan (06/20/2022 3:08 PM CDT): Lower Metformin to once a day continue Victoza Continue working on diet and exercise. Assessment & Plan (01/01/2022 4:21 PM CDT): Hba1c was Lab Results Component Value Date HGBA1C 5.3 01/01/2022 today, indicating adequate DM control Goal Hba1c and blood glucose explained Diet and exercise were advised Prevention and treatment of hyypoglcyemia were discussed with the patient Blood glucose monitoring : Once a day at different times of the Adjustment to medications: Continue with Victoza and metformin Assessment & Plan (08/02/2021 1:20 PM CDT): Hba1c was Lab Results Component Value Date HGBA1C 6.2 08/02/2021 today, indicating Adequate DM control Goal Hba1c and blood glucose explained Diet and exercise , discussed Prevention and treatment of hyypoglcyemia discussed. Blood glucose monitoring : 1-2 x day Adjustment to oral medications: Continue Metformin Increase Victoza 1.8 mg nightly Assessment & Plan (06/05/2021 4:08 PM CDT): Hba1c was Lab Results Component Value Date HGBA1C 7.4 (H) 05/08/2021 today, indicating suboptimal DM control Goals blood sugars of 120-160 and Hba1c under 7 % was explained. 1800 calorie, consistent carb diet recommended, no more than 30 grams of carbs per meal, avoiding concentrated sweet drinks and rapid absorption carbs. 25-45 min daily aerobic and resistance exercise recommended Advised the patient to do blood glucose monitoring every other day, alternating different times of the day Continue metformin Will start GLP-1 analog with Victoza, which will help with blood glucose control but also with some weight loss which is one the patient's main concern I explained to the patient also how hyperglycemia and diabetes can be a side effect of Sandostatin. The fact that she has history of diabetes in the family however plays and important role in her developing diabetes YASMIN (obstructive sleep apnea) 04/05/2021 Overview (09/19/2022): Last Assessment & Plan: Patient will continue with auto titrating CPAP set at auto titrating range of 5- 13 cm water pressure. Patient denied need for supplies. DME company [employer]. Last Assessment & Plan: The patient will continue with CPAP therapy at 5-15 cm water pressure to treat obstructive sleep apnea. I did provide the patient an order for a medium-size mask and head gear to see if this might improve her CPAP experiences. The patient not DME company is [employer]. The patient needs to be refitted for mask. That has been ordered. The patient is benefitting from CPAP therapy. Assessment & Plan (04/22/2024 2:24 PM CDT): The patient continues to benefit from the auto titrating CPAP unit with a range of 5-13 cm water pressure for ongoing symptoms of YASMIN. Her DME supplier is [employer]. She will follow up here in 1 year. Assessment & Plan (04/17/2023 2:52 PM CDT): The patient continues to benefit from the auto titrating CPAP unit with a range of 5-13 cm water pressure. Her DME supplier is [employer]. I will have an order sent to resize her current CPAP mask. She will follow-up with me in 1 year. Assessment & Plan (04/08/2022 1:57 PM CDT): Patient will continue with auto titrating CPAP set at auto titrating range of 5- 13 cm water pressure. Patient denied need for supplies. DME company [employer]. Assessment & Plan (04/05/2021 3:41 PM CDT): The patient will continue with CPAP therapy at 5-15 cm water pressure to treat obstructive sleep apnea. I did provide the patient an order for a medium-size mask and head gear to see if this might improve her CPAP experiences. The patient not DME company is [employer]. The patient needs to be refitted for mask. That has been ordered. The patient is benefitting from CPAP therapy. 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 Currently taking Atorvastatin 10mg. Last lipid panel: 02/27/24 LDL=89, TG=85. Assessment & Plan (07/27/2024 2:40 PM CDT): Chronic problem. Currently taking Atorvastatin 10mg. Last lipid panel: 02/27/24 LDL=89, TG=85. Assessment & Plan (01/27/2024 2:52 PM CDT): Chronic, well controlled Continue statin therapy with atorvastatin Assessment & Plan (07/11/2023 2:40 PM CDT): Chronic, well controlled Continue Atorvastatin Update lipid profile Assessment & Plan (12/24/2022 2:45 PM CDT): Chronic, well controlled Low fat Low cholesterol diet Exercise Continue statin therapy with Atorvastatin PSVT (paroxysmal supraventricular tachycardia) ( [facility]/HCC) 02/21/2021 Assessment & Plan (03/22/2022 8:41 AM CDT): - restart home BB Malignant carcinoid tumor of bronchus and lung 0 10/20/2020 Overview (09/19/2022): s/p RMLobectomy 03/21/2022 Hyperglycemia 10/17/2020 03/20/2023 Diabetes mellitus type 2 without retinopathy 02/202103/20/2023 Overview (03/20/2023): Last Assessment & Plan: - SSI - on oral medications at home Last Assessment & Plan: - SSI - on oral medications at home Annual physical exam 05/16/2020 Assessment & Plan (09/25/2023 3:58 PM COMMUNITY WORKER): Follow-up 1 year for annual physical. Continue eating healthy. Limit processed foods like white starches, fast food, sweets and soda. Increase your vegetable intake and limit red meat. Continue exercising and wearing your seatbelt at all times. No texting and driving. Continue to manage your stress in a healthy manner. Assessment & Plan (10/02/2022 4:02 PM COMMUNITY WORKER): Follow-up 1 year for annual physical. Continue eating healthy. Limit processed foods like white starches, fast food, sweets and soda. Increase your vegetable intake and limit red meat. Continue exercising and wearing your seatbelt at all times. No texting and driving. Continue to manage your stress in a healthy manner. Assessment & Plan (05/22/2021 2:05 PM CDT): Follow-up 1 year for annual physical. Continue eating healthy. Limit processed foods like white starches, fast food, sweets and soda. Increase your vegetable intake and limit red meat. Continue exercising and wearing your seatbelt at all times. No texting and driving. Continue to manage your stress in a healthy manner. Inappropriate sinus tachycardia 05/16/2020 Diastolic dysfunction 05/16/2020 Assessment & Plan (03/22/2022 8:48 AM CDT): Diastolic function: stage I - impaired relaxation LVEF: 60-70%. - chronic and compensated - Cont BB, hold OSIRIS for now - not on diuretic Class 2 severe obesity due t o excess calories with serious comorbidity and body mass index (BMI) of 37.0 to 37.9 in adult 04/06/2020 Assessment & Plan (11/26/2024 10:01 AM COMMUNITY WORKER): Discussed healthy diet and importance of regular physical activity (20- 30min/day, 150min/wk). 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 Will increase Trulicity from 1.5mg weekly to 3mg weekly to help with weight loss. Edema 04/06/2020 Palpitations 04/06/2020 Dyspnea 04/06/2020 Mediastinal lymphadenopathy 03/07/2020 Hypertension associated with diabetes 03/07/2020 Assessment & Plan (11/26/2024 9:38 AM COMMUNITY WORKER): Chronic problem. Controlled on current carvedilol 12.5mg bid, lisinopril 20mg Assessment & Plan (07/27/2024 2:40 PM CDT): Chronic problem. Controlled on current carvedilol 12.5mg bid, lisinopril 20mg Assessment & Plan (07/11/2023 2:43 PM CDT): Chronic, well controled Continue Lisinopril Assessment & Plan (12/24/2022 2:43 PM CDT): Chronic, well controlled Continue LIsinopril Update MA Assessment & Plan (08/02/2021 1:22 PM CDT): Goal blood pressure is less than 140/85 Low salt diet was discussed andd recommended The importance of daily aerobic exercise was also emphasized. Continue current meds, including OSIRIS-I or ARB, e.g. Lisinopril Check microalbumin Tinnitus of both ears 03/07/2020 Essential hypertension 03/07/2020 Overview (03/20/2023): Last Assessment & Plan: Goal blood pressure [...] Multiple pulmonary nodules 11/11/2019 Centrilobular emphysema 11/11/2019 Cigarette nicotine dependenc e with nicotine-induced disorder 11/11/2019 Resolved Problems Problem Noted Date Diagnosed Date Resolved Date UTI (urinary tract infection) 07/15/2022 04/02/2024 Bronchogenic lung cancer, right 03/21/2022 12/24/2022 Assessment & Plan (03/22/2022 8:41 AM CDT): XI ROBOTIC LOBECTOMY (Right) - pain well controlled - D/C chest tube today - no air leak - wean D/C O2 - D/C franki/grier - PT to see - MTF Disease due to severe acute respiratory syndrome coronavirus 2 (SARS-CoV-2) 08/17/202106/2024 Overview (09/19/2022): Last Assessment & Plan: Drink plenty of fluids Take Delsym for cough Tylenol as needed Taking flonase and zyrtec daily Last Assessment & Plan: Drink plenty of fluids Take Delsym for cough Tylenol as needed Taking flonase and zyrtec daily Disease due to severe acute respiratory syndrome coronavirus 2 (SARS-CoV-2) 08/17/2021 03/20/202306/2024 Overview (03/20/2023): Last Assessment & Plan: Drink plenty of [...] zyrtec daily YASMIN (obstructive sleep apnea) 04/05/2021 03/20/2023 03/20/2023 Overview (03/20/2023): Last Assessment & Plan: Patient will continue with auto titrating CPAP set at auto titrating range of 5- 13 cm water pressure. Patient denied need for supplies. [employer] adapt. Last Assessment & Plan: The patient will continue with CPAP therapy at 5-15 cm water pressure to treat obstructive sleep apnea. I did provide the patient an order for a medium-size mask and head gear to see if this might improve her CPAP experiences. The patient not [employer] is [employer]. The patient needs to be refitted for mask. That has been ordered. The patient is benefitting from CPAP therapy. Last Assessment & Plan: Patient will continue with auto titrating CPAP set at auto titrating range of 5- 13 cm water pressure. Patient denied need for supplies. [employer] adapt. Last Assessment & Plan: The patient will continue with CPAP therapy at 5-15 cm water pressure to treat obstructive sleep apnea. I did provide the patient an order for a medium-size mask and head gear to see if this might improve her CPAP experiences. The patient not [employer] is [employer]. The patient needs to be refitted for mask. That has been ordered. The patient is benefitting from CPAP therapy. Last Assessment & Plan: Patient will continue with auto titrating CPAP set at auto titrating range of 5- 13 cm water pressure. Patient denied need for supplies. [employer] adapt. Last Assessment & Plan: The patient will continue with CPAP therapy at 5-15 cm water pressure to treat obstructive sleep apnea. I did provide the patient an order for a medium-size mask and head gear to see if this might improve her CPAP experiences. The patient not DME company is [employer]. The patient needs to be refitted for mask. That has been ordered. The patient is benefitting from CPAP therapy. Malignant neoplasm of lower respiratory tract 10/20/19 21 03/20/2023 10/21/2023 Overview (03/20/2023): s/p RMLobectomy 03/21/2022 s/p RMLobectomy 03/21/2022 Diabetes mellitus type 2 without retinopathy 03/20/2023 Assessment & Plan (03/22/2022 8:42 AM CDT): - SSI - on oral medications at home Smoking 03/07/2020 03/20/2023 Overview (04/19/2021): 43 pack years, on going Smoking 03/07/2020 03/20/2023 03/20/2023 Overview (03/20/2023): 43 pack years, on going 43 pack years, on going Multiple pulmonary nodules 11/11/2019 0 04/02/2024 Immunizations Immunization Administration Dates Next Due Influenza, Quadrivalent, Kelly l Culture-based MDCK, Preservative Free, Antibiotic Free, Intramuscular 07/13/2020 Influenza, Quadrivalent, Spl it, Preservative Free, Intramuscular 09/12/2021,11/08/2019 Influenza, Unspecified 09/25/2023(Deferr ed: Patient Refused),01/09/2023(Deferred: Patient Refused),07/13/2020 Moderna SARS-CoV-2 Monovalen t Vaccination (12+ YRS) 01/04/2022,12/14/2021 Pfizer SARS-CoV-2 Monovalent Vaccination (12+ Yrs) LÓPEZ-READY TO USE 01/04/2022,12/14/2021 Pneumococcal Polysaccharide PPV23 11/08/2019 Tdap 11/08/2019 Social History Tobacco Use Types Packs/Day Years [...] on file 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 Gender Identity Not on file Sexual Orientation Not on file Last Filed Vital Signs Vital Sign Reading Time Taken Comments Blood Pressure 144/82 01/24/2025 7:00 AM CDT Pulse 83 01/24/2025 7:00 AM CDT Temperature 36 C (96.8 F) 01/24/2025 6:00 AM CDT Respiratory Rate 22 01/24/2025 7:00 AM CDT Oxygen Saturation 98% 01/24/2025 7:00 AM CDT Inhaled Oxygen Concentration - - Weight 109.1 kg (240 lb 9.6 oz) 01/24/2025 5:47 AM CDT Height 172.7 cm (5' 8) 01/24/2025 5:47 AM CDT Body Mass Index 36.58 01/24/2025 5:47 AM CDT Plan of Treatment Not on file Medical Devices Implanted Type Area Industrial Relations Analyst Device Identifier Shelf Expiration Date Model / Serial / Lot [employer] Universa 7fr 26cm Radiopaque Positioner Monofilament Tether Firm [id number] - [id number] Implanted:Qty: 1 on 08/02/2022 by Gerard Mercado MD at [facility] Right: Ureter [employer] 01/22/2025 [id number] / / [id number] [employer] Universa 6fr 24cm Radiopaque Graduate Firm Monofilament Tether [id number] - [id number] Implanted:Qty: 1 on 08/02/2022 by Gerard Mercado MD at [facility] Right: Ureter [employer] 05/24/2025 [id number] / / [id number] Explanted Type Area Industrial Relations Analyst Device Identifier Shelf Expiration Date Model / Serial / Lot Ureteral Stent Explanted:Qty: 2 on 08/02/2022 by Gerard Mercado MD at [facility] Right: Ureter Other Description:2 ureteral stent s removed from the right ureter Disposed of per hospital policy Procedures Procedure Name Priority Date/Time Associated Diagnosis Comments POCT GLUCOSE DEVICE Routine 01/24/2025 6 :08 AM CDT AUDBASE RESULTS 01/04/2025 9:16 AM CDT POCT HEMOGLOBIN A1C Routine 11/26/2024 9 :27 AM COMMUNITY WORKER Type 2 diabetes mellitus with hyperglycemia, without long-term current use of insulin (HCC) ALBUMIN CREATININE RATIO, URINE Routine 07/27/2024 12:00 PM CDT Type 2 diabetes mellitus with hyperglycemia, without long-term current use of insulin (HCC) SCREENING MAMMOGRAM BILATERAL W WILMAR Schedule Routine, Read Routine (OP Routine) 04/23/2024 2:18 PM CDT Encounter for screening mammogram for malignant neoplasm of breast HM DIABETES EYE EXAM Routine 04/13/2024 7:22 AM CDT LIPID PANEL Routine 02/27/2024 Annual physical exam EGFR Routine 08/05/2023 6:48 AM CDT Essential hypertension PAP AND HIGH RISK HPV, REFLEX TO GENOTYPING Routine 05/29/2023 9:12 AM CDT Encounter for screening for malignant neoplasm of cervix COLONOSCOPY Routine 03/21/2021 TYMPANOPLASTY WITH RECONSTRUCTION OSSICULAR CHAIN. Mixed conductive and sensorineural hearing loss of right ear, unspecified hearing status on contralateral side Special Needs Microscope, no additional equipment needed from Last 3 Months or Most Recently Relevant to Health Maintenance Results * POCT glucose (01/24/2025 6:08 AM CDT) Glucose, POC 145 70 - 199 mg/dL Comment: Interpretive Data Glucose is assumed to be non-fasting. Fasting Glucose reference ranges are: 0 - 150 years: 70 mg/dL - 99 mg/dL Current interpretive data was last revised on 2014. POC Performer [id number] [facility] Device Number [id number] LAN KELLYW Blood 01/24/2025 6:08 AM CDT 01/24/2025 6:08 AM CDT Que Carreon MD LAB POCT ORDERABLES - B[place] CE Final Result LAN BJWCH [address] [facility] [place] [address] * AudBase Results (01/04/2025 9:16 AM CDT) Provider Scanning AUDIOLOGY SERVICES ORDERABLES Final Result * (ABNORMAL) POCT hemoglobin A1c (11/26/2024 9:27 AM COMMUNITY WORKER) Pathologist [facility] Hemoglobin A1C, POC 6.1 4.0 - 5.6 % Blood 11/26/2024 9:27 AM COMMUNITY WORKER Carissa Dobson NET DEVELOPER PROGRAMMER POINT OF CARE TEST ORDERA BLES Final Result * Albumin Creatinine Ratio, Urine (07/27/2024 12:00 PM CDT) Pathologist [facility] Albumin Ur <12.0 mg/L Comment: Interpretive Data No reference range established. Current interpretive data was last revised 2019. Creatinine Ur 37.1 mg/dL LAN MERCADO Comment: Interpretive Data No reference range established. Current interpretive data was last revised 2019. Albumin Creatinine Ratio, Ur See Comment 1 - 29 LAN MERCADO Comment:Unable to calculate Urine 07/27/2024 12:0 0 PM CDT 07/27/2024 9:05 PM CDT us Carissa Dobson NET DEVELOPER PROGRAMMER LAB URINE ORDERABLES Sammi l Result LAN [address] [address] Department [place] [address] * Screening Mammogram Bilateral W [place] (04/23/2024 2:18 PM CDT) Anatomical Region Laterality Modality Breast Bilateral Mammography Impressions 04/23/2024 5:08 PM CDT BI-RADS ATLAS category (overall): 2 - Benign There is no mammographic evidence of malignancy. A 1 year screening mammogram is recommended. The patient has been or will be contacted. We recommend annual screening mammography for women at average risk of breast cancer beginning at age 40, based on guidelines of the [place] [employer] (ACR Practice Parameter for the Performance of Screening and Diagnostic Mammography) and [place] [employer] and Gynec[employer]. For women with and elevated risk of breast cancer, please refer to the ACR Practice Parameter for specific screening recommendations. The patient will be entered into a reminder system with a target due date of 1 year for her next screening exam. Narrative 04/23/2024 5:08 PM CDT Screening Mammogram Bilateral W Wilmar: 04/23/24 The study was acquired using full field digital technology and interpreted from soft copy. 2D digital mammographic views, as well as 3D digital tomosynthesis were performed in the CC and MLO projections. CLINICAL: Encounter for screening mammogram for malignant neoplasm of breast. No relevant medical history has been documented for this patient. History of breast cancer in Neg Hx. COMPARISONS: 04/17/2023 DIAGNOSTIC MAMMOGRAM BILATERAL W WILMAR 04/17/2023 US Breast Bilateral Limited 09/14/2021 Breast Imaging Diagnostic Outside Reference 09/14/2021 DIAGNOSTIC MAMMOGRAM RIGHT W WILMAR 09/14/2021 US BREAST RIGHT LIMITED BREAST TISSUE: The breasts are heterogeneously dense, which may obscure small masses. FINDINGS: There are unchanged benign microcalcifications in both breasts. There is no new suspicious finding in either breast on mammogram. us Autumn Pantoja NP IMG MAMMO PROCEDURES Fi nal Result * HM DIABETES EYE EXAM (04/13/2024 7:22 AM CDT) us Historical Provider HEALTH MAINTENANCE Edited Result - Final * Lipid panel (02/27/2024) Blood Autumn Pantoja NP LAB BLOOD ORDERABLES Fi nal Result EXTERNAL LAB * eGFR (08/05/2023 6:48 AM CDT) eGFR 84 mL/min/1. 73 m2 LAN DAVIS Comment: Interpretive Data Reference Interval Normal >/= 90 mL/min/1.73m2 Mildly decreased* 60 - 89 mL/min/1.73m2 Mildly to moderately decreased 45 - 59 mL/min/1.73m2 Moderately to severely decreased 30 - 44 mL/min/1.73m2 Severely decreased 15 - 29 mL/min/1.73m2 Kidney Failure < 15 mL/min/1.73m2 *Relative to young adult level Estimated glomerular filtration rate is determined by the 2020 CKD-EPI equation recommended by the National Kidney Foundation (A Unifying Approach to GFR Estimation: Recommendations of the NKF-ASK Task Force on Reassessing the Inclusion of Race in Diagnosing Kidney Disease, JASN 2020). The CKD-EPI equation should not be used for patients with unstable renal function and has not been validated in children and those over 70. Current interpretive data was last reviewed 2021. Testing performed by: [facility], [address] [place] [address], [place]., [address] Blood 08/05/2023 6:48 AM CDT 08/05/2023 7:32 AM CDT us Rose Arias MD LAB BLOOD ORDERABLES Final R esult LAN [address] [facility] Department [place] [address] * Pap and High Risk HPV and Genotyping (Cytology Component) (05/29/2023 9:12 AM CDT) Endocervical (Pap test) 05/29/2023 9:12 AM CDT 06/02/2023 9:12 AM CDT Narrative PATHOLOGY [facility] - 06/04/2023 3:44 PM CDT [facility] Department of Pathology [address] [place] [address] Final Report with Addendum Note to Patients: This report may contain a detailed description of human tissue sent by a health care provider to the laboratory for pathologic evaluation. The content of this report is essential for diagnosis and may provide important critical findings. This information may be unfamiliar to patients to review without a medical professional present. It is advised that the patient review this report in the presence of a health care provider who can answer questions and explain the details. Patient Name: COMFORT VASQUES Address: [address] [place] [address]- Gender: F : 1965 (Age: 58) Service: Location: N : [id number] [facility] #: [id number] Patient Type: [facility] SPECIMEN Taken: 05/29/2023 Received: 06/02/2023 Accessioned:: 06/03/2023 Reported: 06/04/2023 Physician(s): Cortney Kennedy M.D. [facility] Diagnosis: SOURCE OF SPECIMEN SCREENING THIN PREP IMAGED PAP w/ HPV: STATEMENT OF ADEQUACY - Satisfactory for evaluation; endocervical/transformation zone component present GENERAL CATEGORIZATION: - Negative for intraepithelial lesion or malignancy INTERPRETATION: - Atrophic smear pattern LYNN Morrow(ASCP) Report Electronically Reviewed and Signed Out By LYNN Morrow(ASCP) 06/04/2023 15:44:17Addenda: HPV Test Interpretation HPV HR 16- Not detected HPV HR 18-Not detected HPV HR non 16/18- Not detected Interpretive Data Nucleic acid amplification for detection of high-risk Human Papilloma virus (HPV) is performed by the Pastora Srinivasa 6800 HPV test. This assay specifically detects HPV- 16 and HPV-18 genotypes. The following HPV genotypes are detected as high-risk HPV: HPV-31, 33, 35, 39, 45, 51, 52, 56, 58, 59, 66, and 68. This assay has been approved by the [place] Food and Drug Administration for detection of HPV in cervical specimens collected by a physician using an endocervical brush/spatula or cervical broom and placed in the ThinPrep Pap Test PreservCyt collection containers. The performance characteristics of this test have been verified by the [facility] Molecular Infectious Disease laboratory. Correlate with reported cytology results, as applicable. Interpretive data last revised 23 LYNN Morrow(ASCP)Report Electronically Reviewed and Signed Out By LYNN Morrow(ASCP) 06/04/2023 14:35:45 Specimen(s) Received: A: SCREENING THIN PREP IMAGED PAP w/ HPV Clinical History: Menstrual History: Post-menopausal The Pap test is a screening test used to aid in the detection of cervical cancer and its precursors. It should not be the sole means by which malignant and premalignant lesions are diagnosed. Both false negative and false positive results may occur. It also has poor sensitivity for the detection of endometrial lesions and should not be used to evaluate suspected endometrial abnormalities. For these reasons it is most important to obtain Pap tests at regular intervals. The performance characteristics of some immunohistochemical stains, fluorescence in-situ hybridization tests and immunophenotyping by flow cytometry cited in this report (if any) were determined by the Surgical Pathology Department at [facility] as part of an ongoing quality compliance manager program and in compliance with federally mandated regulations drawn from the Clinical Laboratory Improvement Act of 1988 (CLIA '88). Some of these tests rely on the use of analyte specific reagents and are subject to specific labeling requirements by the US Food and Drug Administration. Such diagnostic tests may only be performed in a facility that is certified by the Department of Health and Human Services as a high complexity laboratory under CLIA '88. The FDA has determined that such clearance or approval is not necessary. This test is used for clinical purposes. It should not be regarded as investigational or for research. Nevertheless, federal rules concerning the medical use of analyte specific reagents require that the following disclaimer be attached to the report: This test was developed and its performance characteristics determined by the Surgical Pathology Department [facility]. It has not been cleared or approved by the U. S. Food and Drug Administration. Cortney Kennedy MD LAB CYTOLOGY ORDERABLES Final Result PATHOLOGY [facility] * Colonoscopy (03/21/2021) Anatomical Region Laterality Modality Other 03/21/2021 Allen Thurman MD ENDOSCOPY PROCEDURES Final Resu lt from Last 3 Months or Most Recently Relevant to Health Maintenance Insurance [facility] Advance Directives For more information, please contact: [phone] Documents on File Type Date Recorded Patient Application Lead Expl anation ADVANCE DIRECTIVE 03/21/2022 12:53 PM Power of Hydraulic Auto Jack Mechanic-Medical * Full Code (Latest Code Status on File) Date Activated Date Inactivated Comments 03/21/2022 7:50 PM 03/22/2022 10:44 PM Care Teams Formula Maker Relationship Specialty Start Date End Date Angelic Wilcox MD [address] [facility] [address] [place], [place] [address] PCP - General Family Medicine 08/16/24 Ryan Barnes DO Referring Physician Medical Oncology 03/19/20 Tony Wall MD [address] [facility] [address] [place] [address] Scrub Technician Internal Medicine 03/19/20 Bar Kimble MD [address] [address] Consulting Physician Pulmonary Disease 01/28/22 Gerard Mercado MD [address] [facility] [place] [address] Consulting Physician Urology 08/02/22
--- OUTSIDE RECORDS SUMMARY | 2025-03-21 16:40 | XMS_ITS | Encounter Summary ---
Author Organization [facility] Address [address] [place] [address] Care Team Providers Care Retail Cosmetics Sales Beauty Advisor Name Role Phone Keyla May MD Primary Care Provider [phone] Rico Meade MD Primary Care Provider + [phone] [place] Irwin Primary Care Provider + [phone] Encounter Details Date Type Department Care Team (Late st Contact Info) Description 06/13/2020 Lab Requisition [facility] [address] [place] [address] Betty Arthur MD [address] [place] [id number] Social History Tobacco Use Types Packs/Day Years Used Date Smoking Tobacco: Former Cigarettes Smokeless Tobacco: Never Alcohol Use Standard Drinks/Week Comments Not Currently 0 (1 standard drink = 0.6 oz pur e alcohol) Comments Unknown Sex and Gender Information Value Date Recorded Sex Assigned at Not on file 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 Gender Identity Not on file Sexual Orientation Not on file documented as of this encounter Plan of Treatment Not on file documented as of this encounter Procedures Procedure Name Priority Date/Time Associated Diagnosis Comments DERMATOPATHOLOGY Routine 06/09/2020 12:0 0 AM CDT documented in this encounter Results * DERMATOPATHOLOGY (06/09/2020 12:00 AM CDT) Case Report Dermatopathology Report Case: [id number] Authorizing Provider: Betty Arthur MD Collected: 06/09/2020 12:00 AM Ordering Location: [facility] Lab Received: 06/13/2020 09:17 AM Pathologist: Lizzie Cortés MD Specimen: Skin, right thigh 0 2:25 PM CDT DERMATOPATHOLOGY LABORATORY Final Diagnosis Specimen A. SKIN, right thigh: ACROCHORDON (SOFT FIBROMA, SKIN TAG) (L91.8) 0 2:25 PM CDT DERMATOPATHOLOGY LABORATORY at 1425 CDT Clinical History Benign skin tag. 0 2:25 PM CDT DERMATOPATHOLOGY LABORATORY Gross Description Specimen A: Received is one formalin filled container labeled with the patient's name and designated right thigh. The specimen consists of a 9d7a3kg piece of skin, bisected. Jar 0. 0 2:25 PM CDT DERMATOPATHOLOGY LABORATORY Microscopic Description Specimen A. SKIN, right thigh: There is a gently folded epidermis surrounding a connective tissue core in which fat and collagen are intermingled. 0 2:25 PM CDT DERMATOPATHOLOGY LABORATORY Disclaimer An external and internal positive and negative controls are appropriate for the histochemical, immunohistochemical and immunofluorescence stain(s) in this case (if any), except where stated explicitly. The performance characteristics of the stain(s) cited in this report were developed and its performance characteristic determined by the Dermatopathology Laboratory at [facility], directed by Dr. Jael Renner. These tests need not be, and therefore are not, approved by the [place] Food and Drug Administration. The tests are used for clinical purposes. Billing Codes Specimen Charges Stain Charges 54342 1 0 2:25 PM CDT DERMATOPATHOLOGY LABORATORY Embedded Images 0 2:25 PM CDT DERMATOPATHOLOGY LABORATORY Pathology/Cytolog y TISSUE SPECIMEN FROM SKIN / Unknown 06/09/2020 06/13/2020 9:17 AM CDT us Betty Arthur MD LAB - PATHOLOGY/CYTOLOGY ORDERABLES Final Result DERMATOPATHOLOGY LABORATORY [facility] - Department of Dermatology [facility] Medicine [address] [facility] [place] [address], [facility] [phone] documented in this encounter Visit Diagnoses Not on filedocumented in this encounter Care Teams Retail Cosmetics Sales Beauty Advisor Relationship Specialty Start Date End Date Keyla May MD [address] [place], [place] [id number] PCP - General Family Medicine 11/26/19 02/14/21 Rico Meade MD [address] [facility] [address] [place] [id number] PCP - General 02/15/21 05/03/21 [place] Irwin PA [address] [facility] [address] [place], [place] [address] PCP - General 05/04/21 documented as of this encounter
--- OUTSIDE RECORDS SUMMARY | 2025-03-21 16:40 | XMS_ITS ---
Author Organization [facility] at [facility] Address [address] [place] [address] Care Team Providers Care Ciaio Counter Molder Name Role Phone Ryan Barnes DO Unavailable Tony Wall MD Unavailable [phone] Bar Kimble MD Unavailable Gerard Mercado MD Unavailable Angelic Wilcox MD Primary Care Provider Active Problems Patient Care Coordination No te [...] 08/17/2021 Assessment & Plan (08/25/2021 1:54 PM MAINFRAME DEVELOPER): Drink plenty of fluids Take Delsym for cough Tylenol as needed Taking flonase and zyrtec daily Type 2 diabetes mellitus wit h hyperglycemia, without long-term current use of insulin 06/05/2021 Overview (06/05/2021): on Metformin. Pt has questions regarding her cancer treatments in relation to her DM. Will refer to endocrinology. Assessment & Plan (11/26/2024 10:00 AM MAINFRAME DEVELOPER): Chronic problem. A1c improved from 6.6% 07/27/24 to now 6.1%. Will increase trulicity from 1.5mg to 3mg weekly to help with weight loss. Current medications: Metformin XR 500mg daily Trulicity 3 mg weekly UTD on DM eye exam (04/13/24 no DMR/DME [facility]) UTD on labs. Discussed with Brianna Vasques: Strive for regular exercise (30min most [...] on DM eye exam (04/13/24 no DMR/DME [facility]) Will update MA/Cr today. Does not mychart. Verified phone #/address to contact re: results. Discussed with Brianna Vasques: Strive for regular exercise (30min most [...] denied need for supplies. DME [employer]. Last Assessment & Plan: The patient [...] 02/21/2021 Assessment & Plan (11/26/2024 9:38 AM MAINFRAME DEVELOPER): Chronic problem. Currently taking Atorvastatin 10mg. Last [...] with Atorvastatin PSVT (paroxysmal supraventricular tachycardia) ( [facility]) 02/21/2021 Assessment & Plan (03/22/2022 8:41 AM [...] 05/16/2020 Assessment & Plan (09/25/2023 3:58 PM MAINFRAME DEVELOPER): Follow-up 1 year for annual physical. Continue eating healthy. Limit processed foods like white starches, fast food, sweets and soda. Increase your vegetable intake and limit red meat. Continue exercising and wearing your seatbelt at all times. No texting and driving. Continue to manage your stress in a healthy manner. Assessment & Plan (10/02/2022 4:02 PM MAINFRAME DEVELOPER): Follow-up 1 year for annual physical. Continue [...] 04/06/2020 Assessment & Plan (11/26/2024 10:01 AM MAINFRAME DEVELOPER): Discussed healthy diet and importance of regular physical activity (20- 30min/day, 150min/wk). 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 Will increase Trulicity from 1.5mg weekly to 3mg weekly to help with weight loss. Edema 04/06/2020 Palpitations 04/06/2020 Dyspnea 04/06/2020 Mediastinal lymphadenopathy 03/07/2020 Hypertension associated with diabetes 03/07/2020 Assessment & Plan (11/26/2024 9:38 AM MAINFRAME DEVELOPER): Chronic problem. Controlled on current carvedilol 12.5mg [...] nicotine dependenc e with nicotine-induced disorder 11/11/2019 Current Treatment and Therapy Plans No current plan information found. Past Treatment and Therapy Plans Lifetime Dose Tracking * Chemical Lifetime Dose Automatic Entry Manual Entr y Fluoro Time 1.25 minutes 1.25 minutes 0 minutes Air kerma at the reference point (Ka,r) 25.007 mGy 2 5.007 mGy 0 mGy DLP 619 mGycm 619 mGycm 0 mGycm Resolved Problems Problem Noted Date Diagnosed Date [...] acute respiratory syndrome coronavirus 2 (SARS-CoV-2) 08/17/2021 01/0 06/2024 Overview (09/19/2022): Last Assessment & Plan: Drink [...] water pressure. Patient denied need for supplies. [facility] [employer]. Last Assessment & Plan: The patient [...] water pressure. Patient denied need for supplies. [facility] [employer]. Last Assessment & Plan: The patient [...] water pressure. Patient denied need for supplies. [facility] [employer]. Last Assessment & Plan: The patient [...] therapy. Malignant neoplasm of lower respiratory tract 10/20/1903/20/2023 10/21/2023 Overview (03/20/2023): s/p RMLobectomy 03/21/2022 s/p [...]
--- OUTSIDE RECORDS SUMMARY | 2025-03-21 16:40 | XMS_ITS | Clinical Summary ---
Author Organization [facility] Address [address] [place] [address] Care Team Providers Care Ring Barker Operator Name Role Phone Ryan Barnes DO Unavailable [phone] Tony Wall MD Unavailable Bra Kimble MD Unavailable Gerard Mercado MD Unavailable Angelic Wilcox MD Primary Care Provider Allergies No known active allergies Medications Symbicort [...] 08/17/2021 Assessment & Plan (08/25/2021 1:54 PM ASSISTANT PROJECT MANAGER): Drink plenty of fluids Take Delsym for cough Tylenol as needed Taking flonase and zyrtec daily Type 2 diabetes mellitus wit h hyperglycemia, without long-term current use of insulin 06/05/2021 Overview (06/05/2021): on Metformin. Pt has questions regarding her cancer treatments in relation to her DM. Will refer to endocrinology. Assessment & Plan (11/26/2024 10:00 AM ASSISTANT PROJECT MANAGER): Chronic problem. A1c improved from 6.6% 07/27/24 to now 6.1%. Will increase trulicity from 1.5mg to 3mg weekly to help with weight loss. Current medications: Metformin XR 500mg daily Trulicity 3 mg weekly UTD on DM eye exam (04/13/24 no DMR/DME [facility]) UTD on labs. Discussed with Comfort Vasuqes: Strive for regular exercise (30min most days) [...] on DM eye exam (04/13/24 no DMR/DME [facility]) Will update MA/Cr today. Does [...] 03/05/2021 Hyperlipidemia associated with type 2 diabetes rossi yen 02/21/2021 Assessment & Plan (11/26/2024 9:38 AM ASSISTANT PROJECT MANAGER): Chronic problem. Currently taking Atorvastatin 10mg. Last [...] with Atorvastatin PSVT (paroxysmal supraventricular tachycardia) ( [facility]) 02/21/2021 Assessment & Plan (03/22/2022 8:41 AM [...] 05/16/2020 Assessment & Plan (09/25/2023 3:58 PM ASSISTANT PROJECT MANAGER): Follow-up 1 year for annual physical. Continue eating healthy. Limit processed foods like white starches, fast food, sweets and soda. Increase your vegetable intake and limit red meat. Continue exercising and wearing your seatbelt at all times. No texting and driving. Continue to manage your stress in a healthy manner. Assessment & Plan (10/02/2022 4:02 PM ASSISTANT PROJECT MANAGER): Follow-up 1 year for annual physical. Continue [...] 04/06/2020 Assessment & Plan (11/26/2024 10:01 AM ASSISTANT PROJECT MANAGER): Discussed healthy diet and importance of regular physical activity (20- 30min/day, 150min/wk). 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 Will increase Trulicity from 1.5mg weekly to 3mg weekly to help with weight loss. Edema 04/06/2020 Palpitations 04/06/2020 Dyspnea 04/06/2020 Mediastinal lymphadenopathy 03/07/2020 Hypertension associated with diabetes 03/07/2020 Assessment & Plan (11/26/2024 9:38 AM ASSISTANT PROJECT MANAGER): Chronic problem. Controlled on current carvedilol 12.5mg [...] water pressure. Patient denied need for supplies. [employer] adapt. Last Assessment & Plan: The patient will continue with CPAP therapy at 5-15 cm water pressure to treat obstructive sleep apnea. I did provide the patient an order for a medium-size mask and head gear to see if this might improve her CPAP experiences. The patient not DME [facility]. The patient needs to be refitted for mask. That has been ordered. The patient is benefitting from CPAP therapy. Last Assessment & Plan: Patient will continue with auto titrating CPAP set at auto titrating range of 5- 13 cm water pressure. Patient denied need for supplies. [employer] adapt. Last Assessment & Plan: The patient will continue with CPAP therapy at 5-15 cm water pressure to treat obstructive sleep apnea. I did provide the patient an order for a medium-size mask and head gear to see if this might improve her CPAP experiences. The patient not DME [facility]. The patient needs to be refitted for mask. That has been ordered. The patient is benefitting from CPAP therapy. Last Assessment & Plan: Patient will continue with auto titrating CPAP set at auto titrating range of 5- 13 cm water pressure. Patient denied need for supplies. [employer] adapt. Last Assessment & Plan: The patient will continue with CPAP therapy at 5-15 cm water pressure to treat obstructive sleep apnea. I did provide the patient an order for a medium-size mask and head gear to see if this might improve her CPAP experiences. The patient not DME [facility]. The patient needs to [...] going Multiple pulmonary nodules 11/11/2019 0 04/02/2024 Encounters Date Type Department Care Team Description 03/11/2025 11:30 AM CDT Therapy [facility] OP Physical Therapy [address] [place] [id number] Nica Arce, PT Urgency incontinence (Primary Dx) 03/11/2025 Plan of Care Documentation [facility] OP Physical Therapy [address] [place] [phone] 03/04/2025 1:30 PM CDT Therapy [facility] OP Physical Therapy [address] [place] [address] Nica Arce, PT Urgency incontinence (Primary Dx) 03/01/2025 Telephone [facility] Advanced [facility] ([facility]) - [facility] ENT [address] [facility] [facility] Advanced Medicine 11th [place] [address] [place] [address] Opal Barlow Return call 03/01/2025 Telephone [facility] Otolaryngology [address] [place] [address] Hawa David, 02/25/2025 11:30 AM CDT Therapy [facility] OP Physical Therapy [address] [place] [phone] Nica Arce, PT Urgency incontinence (Primary Dx) 02/18/2025 10:30 AM CDT Therapy [facility] OP Physical Therapy [address] [place] [address] Nica Arce, PT Urgency incontinence (Primary Dx) 02/17/2025 2:20 PM CDT Office Visit [facility] Urology [address] [facility] [facility] [address] [place] [phone] Ira Viera MD Urgency incontinence; Urgency of urination; Nocturia; Duplicated right renal collecting system; Hydronephrosis, unspecified hydronephrosis type; Overactive bladder; Kidney stone 02/11/2025 11:30 AM CDT Therapy [facility] OP Physical Therapy [address] [place] [address] Nica Arce, PT Urgency incontinence (Primary Dx) 02/04/2025 11:30 AM CDT Therapy [facility] Physical Therapy [address] [place] [address] Nica Arce, PT Urgency incontinence (Primary Dx) 01/28/2025 10:30 AM CDT Therapy [facility] OP Physical Therapy [address] [place] [address] Nica Arce, PT Urgency incontinence (Primary Dx) 01/24/2025 7:30 AM CDT Anesthesia Event [facility] Operating Room [address] [place] [address] Nima Marcos MD Deibel, Lori, NP 01/24/2025 5:37 AM CDT - 01/24/2025 8:13 AM CDT Hospital Encounter [facility] Operating Room [address] [place] [phone] Que Carreon MD Discharge Disposition: Discharge to home or self care 01/21/2025 2:30 PM CDT Therapy [facility] Physical Therapy [address] [place] [phone] Nica Arce, PT Urgency incontinence (Primary Dx) 01/21/2025 Telephone [facility] Otolarynlogy [address] [place] [address] Lynette Cabrera, GIAN 01/18/2025 Orders Only [facility] Otolaryngology [address] [place] [phone] Lynette Cabrera, COMPUTER SERVICE TECHNICIAN 01/14/2025 11:15 AM CDT Therapy [facility] OP Physical Therapy [address] [place] [phone] Nica Arce, PT Urgency incontinence (Primary Dx) 01/14/2025 Telephone [facility] Otolaryngology [facility] [address] [place] [address] Rula Tao RN 01/14/2025 Telephone [facility] Otolaryngology [address] [place] [phone] Lynette Cabrera, COMPUTER SERVICE TECHNICIAN 01/07/2025 10:15 AM CDT Therapy [facility] OP Physical Therapy [address] [place] [phone] Nica Arce, PT Urgency incontinence (Primary Dx) 01/04/2025 9:20 AM CDT Office Visit [facility] Otolaryngology [address] [place] [address] Que Carreon MD Conductive hearing loss of right ear with unrestricted hearing of left ear (Primary Dx); Right chronic otitis media 01/04/2025 9:00 AM CDT Procedure visit [facility] Otolaryngology [address] [place] [address] Mixed conductive and sensorineural hearing loss of right ear with restricted hearing of left ear (Primary Dx); Tinnitus of right ear; Pressure sensation in both ears 12/28/2024 Telephone [facility] Surgery [address] [place] [address] Betty Chavez 12/22/2024 9:30 AM CDT Therapy [facility] Physical Therapy [address] [place] [phone] Nica Arce, PT Urgency incontinence 12/22/2024 Plan of Care Documentation [facility] OP Physical Therapy [address] [place] [phone] 12/21/2024 Orders Only [facility] Urology [address] [facility] [address] [place] [address] Ira Viera MD Urgency incontinence (Primary Dx) from Last 3 Months Immunizations Immunization Administration Dates Next Due Influenza, Quadrivalent, Kelly l Culture-based MDCK, Preservative Free, Antibiotic Free, Intramuscular 07/13/2020 Influenza, Quadrivalent, Spl it, Preservative Free, Intramuscular 09/12/2021,11/08/2019 Influenza, Unspecified 09/25/2023(Deferr ed: Patient Refused),01/09/2023(Deferred: Patient Refused),07/13/2020 Moderna SARS-CoV-2 Monovalen t Vaccination (12+ YRS) 01/04/2022,12/14/2021 Pfizer SARS-CoV-2 Monovalent Vaccination (12+ Yrs) LÓPEZ-READY TO USE 01/04/2022,12/14/2021 Pneumococcal Polysaccharide PPV23 11/08/2019 Tdap 11/08/2019 Surgical History Surgery Date Site/Laterality Comments SECTION 1987 and 1988 EAR SURGERY 10/13/2006 - 10/12/2007 Right repair ear drum TUBAL LIGATION 10/13/1992 - 10/12/1993 LIPOMA RESECTION Bilateral several areas, arms, hips, over 20 years ago GANGLION CYST EXCISION Right over 15 years ago MOLE REMOVAL couple, over 30 years ago COLONOSCOPY last one 2020 ESOPHAGOGASTRODUODENOSCOPY last one 2020 DILATION AND CURETTAGE OF UTERUS early KIDNEY STONE SURGERY 07/13/2022 - 08/12/2022 kidney stone removal LOBECTOMY 03/13/2022 - 04/11/2022 Right EAR SURGERY 08/17/2024 Right Medical History Medical History Date Comments 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 s/p RMLobectomy 03/21/2022 s/p RMLobectomy 03/21/2022 Disease due to severe acute respiratory syndrome coronavirus 2 (SARS-CoV-2) 08/17/2021 Formatting of this note migh t be different from the original. Last Assessment & Plan: Drink plenty of fluids Take Delsym for cough Tylenol as needed Taking flonase and zyrtec daily Formatting of this note Family History Medical History Relation Name Comments Diabetes Father labor Father's Brother Diabetes Father's Sister Heart attack Maternal Grandfather Prostate cancer Maternal Grandfather Blood Clot Maternal Grandmother Heart attack Maternal Grandmother Stroke Maternal Grandmother Cancer Mother Anesthesia problems Mother's Sister Delay ed emergence Diabetes Paternal Grandmother Diabetes Sister Cancer Son Testicular cancer Son Breast cancer Neg Hx Colon cancer Neg Hx Ovarian cancer Neg Hx Pancreatic cancer Neg Hx Uterine cancer Neg Hx Relation Name Status Comments Father Father's Brother Father's Sister Maternal Grandfather Maternal Grandmother Mother Mother's Sister Alive Paternal Grandmother Sister Son Social History Tobacco Use Types Packs/Day Years [...] on file Legal Sex Female 12:51 PM ASSISTANT PROJECT MANAGER Gender Identity Not on file Sexual Orientation Not on file Obstetrics History Para Term AB IAB SAB Ectopic Multiple Livin g Live Births 4 3 3 1 1 2 3 Date Outcome GA Total Labor Labor/2nd/3rd Weight Sex Type Anes PTL Arielle A1 A5 Name Clin Term Term Term SAB Comments Age of 1st cycle: 12 Age of of 1st cycle: 17 Age of MP: 54 Last Filed Vital Signs Vital Sign Reading [...] 01/24/2025 5:47 AM CDT Plan of Treatment Health Maintenance Due Date Last Done Comments Hepatitis C Screening 1965 Hepatitis B Screening 1981 Zoster Vaccine (1 of 2) 2013 Pneumococcal vaccine <65 (2 of 2 - PCV) 11/08/2020 11/08/2019 Covid-19 Vaccine (2023-2 5 season) 2024 01/04/2022, 01/04/2022, 12/14/2021, Additional history exists eGFR 08/05/2024 08/05/2023, 0611/2022, 02/21/2023, Additional history exists Depression Screening 09/25/2024 09/25/2023, 06/20/2022, 01/01/2022, Additional history exists Breast Cancer Screening-Mammogram 04/23/2025 04/23/2024, 04/23/2024, 04/17/2023, Additional history exists Hemoglobin A1C 05/26/2025 11/26/2024, 07/13, 02/28/2024, Additional history exists Regular Well Visit/Exam 18-64 06/03/2025, 09/25/2023, 05/29/2023, Additional history exists Influenza Vaccine (Season Ended) 2025 09/12/2021, 07/13/2020, 07/13/2020, Additional history exists Albumin Creatinine Ratio, Urine 07/27/2025 07/27/2024, 03/14/2023, 12/24/2022, Additional history exists Foot Exam 11/26/2025 11/26/2024, 06/14, 03/19/2022, Additional history exists Lipid Panel 02/04/2026 02/04/2025, 02/10, 08/05/2023, Additional history exists Colon Cancer Screening-Colonoscopy 03/21/2026 03/21/2021 Dilated Eye Exam 04/13/2026 04/13/2024, , 02/19/2022 Cervical Cancer Screening 05/29/2026 05/29/2023, DTaP/Tdap/Td Vaccine (2 - Td or Tdap) 11/08/2029 11/08/2019 Colon Cancer Screening-CT Colonography Discontinued 03/21/2021 Colon Cancer Screening-DNA Stool Discontinued 03/21/20 Colon Cancer Screening-FIT Discontinued 03/21/2021 Colon Cancer Screening-Sigmoidoscopy Discontinued 03/21/2021 Medical Devices Implanted Type Area Librarian Helper Device Identifier Shelf Expiration Date Model / Serial / Lot [employer] Universa 7fr 26cm Radiopaque Positioner Monofilament Tether Firm [id number] - [id number] Implanted:Qty: 1 on 08/02/2022 by Gerard Mercado MD at [facility] Right: Ureter [employer] 01/22/2025 [id number] / / [id number] [employer] Universa 6fr 24cm Radiopaque Graduate Firm Monofilament Tether [id number] - [id number] Implanted:Qty: 1 on 08/02/2022 by Gerard Mercado MD at [facility] Right: Ureter [employer] 05/24/2025 [id number] / / [id number] Explanted Type Area Librarian Helper Device Identifier Shelf Expiration Date Model / Serial / Lot Ureteral Stent Explanted:Qty: 2 on 08/02/2022 by Gerard Mercado MD at [facility] Right: Ureter Other Description:2 ureteral stent s removed from the right ureter Disposed of per hospital policy Procedures Procedure Name Priority Date/Time Associated Diagnosis Comments POCT GLUCOSE DEVICE Routine 01/24/2025 6 :08 AM CDT AUDBASE RESULTS 01/04/2025 9:16 AM CDT POCT HEMOGLOBIN A1C Routine 11/26/2024 9 :27 AM ASSISTANT PROJECT MANAGER Type 2 diabetes mellitus with hyperglycemia, without [...] was last revised on 2014. POC Performer [id number] LAN PRINCE POC Device Number [id number] LAN PRINCE Blood 01/24/2025 6:08 AM CDT 01/24/2025 6:08 AM CDT us Que Carreon MD LAB POCT ORDERABLES - [place] CE Final Result LAN KELLYWCH [id number] [facility]. [place] [address] * AudBase Results (01/04/2025 9:16 AM CDT) Provider Scanning AUDIOLOGY SERVICES ORDERABLES Final Result * (ABNORMAL) POCT hemoglobin A1c (11/26/2024 9:27 AM ASSISTANT PROJECT MANAGER) Hemoglobin A1C, POC 6.1 4.0 - 5.6 % Blood 11/26/2024 9:27 AM ASSISTANT PROJECT MANAGER Carissa Dobson NP POINT OF CARE TEST ORDERA BLES Final Result * Albumin Creatinine Ratio, Urine (07/27/2024 12:00 PM CDT) Albumin Ur <12.0 mg/L Comment: Interpretive Data No reference range established. Current interpretive data was last revised 2019. Creatinine Ur 37.1 mg/dL LAN Comment: Interpretive Data No reference range established. Current interpretive data was last revised 2019. Albumin Creatinine Ratio, Ur See Comment 1 - 29 LAN Comment:Unable to calculate Urine 07/27/2024 12:0 0 PM CDT 07/27/2024 9:05 PM CDT Carissa Dobson NP LAB URINE ORDERABLES Sammi l Result LAN [id number] [facility] [place] [address] * Screening Mammogram Bilateral W [place] (04/23/2024 [...] age 40, based on guidelines of the [employer] (ACR Practice Parameter for the Performance of Screening and Diagnostic Mammography) and [employer]. For women [...] suspicious finding in either breast on mammogram. Autumn Pantoja NP IMG MAMMO PROCEDURES Fi nal Result * HM DIABETES EYE EXAM (04/13/2024 7:22 AM CDT) Historical Provider HEALTH MAINTENANCE Edited Result - [...] was last reviewed 2021. Testing performed by: [facility], [address] [place] [address]., [id number] Blood 08/05/2023 6:48 AM CDT 08/05/2023 7:32 AM CDT us Rose Arias MD LAB BLOOD ORDERABLES Final R esult [facility] [address] [facility] Department [place] [address] * Pap and High Risk HPV and Genotyping (Cytology Component) (05/29/2023 9:12 AM CDT) Endocervical (Pap test) 05/29/2023 9:12 AM CDT 06/02/2023 9:12 AM CDT Narrative PATHOLOGY [facility] - 06/04/2023 3:44 PM CDT [facility] Department of Pathology [address] [place] [id number] Final Report with Addendum Note to Patients: [...] the details. Patient Name: COMFORT VASQUES Address: [address] [place], [place] [id number]- Gender: F : 1965 (Age: 58) Service: Location: [facility] #: [id number] Patient Type: [facility] SPECIMEN Taken: 05/29/2023 Received: 06/02/2023 Accessioned:: 06/03/2023 Reported: 06/04/2023 Physician(s): Cortney Kennedy M.D. [facility] Diagnosis: SOURCE OF SPECIMEN SCREENING THIN PREP [...] this test have been verified by the [facility] Molecular Infectious Disease laboratory. Correlate with [...] determined by the Surgical Pathology Department at [facility] as part of an ongoing quality and reliability engineer program and in compliance with federally mandated [...] characteristics determined by the Surgical Pathology Department [facility]. It has not been cleared or approved by the U. S. Food and Drug Administration. Cortney Kennedy MD LAB CYTOLOGY ORDERABLES Final Result PATHOLOGY [facility] * Colonoscopy (03/21/2021) Anatomical Region Laterality Modality Other 03/21/2021 Allen Thurman MD ENDOSCOPY PROCEDURES Final Resu lt from Last 3 Months or Most Recently Relevant to Health Maintenance Insurance [facility] Advance Directives For more information, please contact: [phone] Documents on File Type Date Recorded Patient Unit Operator Expl anation ADVANCE DIRECTIVE 03/21/2022 12:53 PM Power of It Security Project Manager-Medical * Full Code (Latest Code Status on File) Date Activated Date Inactivated Comments 03/21/2022 7:50 PM 03/22/2022 10:44 PM Care Teams Ring Barker Operator Relationship Specialty Start Date End Date Angelic Wilcox MD [address] [facility] [address] [place], [place] [id number] PCP - General Family Medicine 08/16/24 Ryan Barnes, Referring Physician Medical Oncology 03/19/20 Tony Wall MD [address] [place] [address] Therapist Phys Internal Medicine 03/19/20 Bar Kimble MD [address] [address] Consulting Physician Pulmonary Disease 01/28/22 Gerard Mercado MD [address] [place] [address] Consulting Physician Urology 08/02/22
== END 2025-03-21 16:10 | disposition home or self-care (01) ==
PROVIDERS: PCP Otolaryngology; Visit Provider Otolaryngology
DX: J32.9 Chronic sinusitis, unspecified (principal)
CPT/HCPCS: 70486